=== PATIENT | male | born 1970 | race Caucasian/White ===

== ENCOUNTER 2017-02-28 10:04 | Emergency (ER) | payer SELFPAY ==
[~2017-02-28] VITALS: Ht 177.8 cm; Wt 107.0 kg
[2017-02-28 10:06] VITALS: BP 162/100; PULSE 59; O2SAT 95; Ht 177.8 cm; Wt 107.0 kg
[2017-02-28] MEDS ORDERED: ACET325T96 PO (10:20)
[2017-02-28] MEDS ORDERED: IBUP-1050 PO (10:20)
[2017-02-28] MEDS ORDERED: HYDROCODONE/ACETAMOPHEN 5/325MG TAB PO STA (10:22)
[2017-02-28] MEDS ORDERED: KETOROLAC TROMETHAMINE 60 MG/2 ML VIAL IM STA (10:28)
--- NOTE | 2017-02-28 10:31 | EMERGENCY ROOM VISIT NOTE ---
ED Visit Note First contact with patient: 10:11 CHIEF COMPLAINT: Toothache HISTORY OF PRESENT ILLNESS: This 46-year-old male presents the ER with chief complaint of increased right lower tooth pain. The patient has had pain in the right lower molar for over one year. He had chipped the tooth prior to the onset of the pain. The patient does not have insurance. The patient states over the last week he has increased pain in the right lower tooth. He denies any facial swelling. He has tried egty-jgr-yftlssc pain medications without any relief. He is also tried Orajel without any relief. REVIEW OF SYSTEMS: 6 system review was performed and was negative unless stated otherwise in history of present illness. PMH: The patient is healthy; there is no significant medical or surgical history. SOCIAL HISTORY: Patient lives with his . PHYSICAL EXAM: Vital Signs: Blood pressure 162/100, pulse 59, respirations 18 Reviewed Nurse's notes. GENERAL: 46-year-old white male appears uncomfortable secondary to tooth pain. MENTAL Status: Alert and oriented 3. Mouth: Right lower molar with diffuse decay and a portion of the tooth missing. Surrounding gingiva without erythema or edema noted. No palpable abscess noted. FACE: No erythema or edema noted. NECK: Supple, no lymphadenopathy noted. EMERGENCY COURSE: The patient was evaluated. The patient's EMR and medication list were reviewed. The patient is not on anything for hypertension. The patient's states that normally when he gets pain his blood pressure goes up. The patient was given [place] 5/325 mg 2 tablets by mouth for pain. He is also given Toradol 60 mg IM for pain. The patient was given dental wax. The patient was reevaluated was feeling better. The patient was discharged home in stable condition. DIAGNOSIS: Dentalgia Elevated blood pressure DISCHARGE INSTRUCTIONS & TREATMENT: Ibuprofen 600 mg every 6 hours with food for pain. Take [place] as needed for more severe pain. Do not drive while taking the [place]. Take amoxicillin as prescribed. Appointment with a dentist as soon as possible for definitive care. Follow-up with your family doctor for blood pressure check in one week. Current/Historical Medications Scheduled PRN Acetaminophen Tab (Tylenol), 650 MG PO Q6H PRN for Pain Ibuprofen (Advil), 200-600 MG PO Q4H PRN for Pain Allergies Coded Allergies: No Known Allergies (Unverified , 02/28/17) Vital Signs Date Time Temp Pulse Resp B/P Pulse Ox O2 Delivery O2 Flow Rate FiO2 02/28/17 10:06 59 18 162/100 95 Room Air Departure Information Referrals No Doctor, Assigned (PCP) Patient Instructions [facility]
[2017-02-28] MEDS ORDERED: HYDR-5688 PO (10:34)
[2017-02-28] MEDS ORDERED: AMOX500C3 PO (10:34)
[2017-07-03] MEDS ORDERED: MULT-506 PO (10:05)
[2017-07-19] MEDS ORDERED: HYDR-5688 PO (10:23)
== END 2017-02-28 10:40 | disposition home or self-care (01) ==
LOC: C.EDB 10:06 → C.EDA 10:40
DX: K08.89 Other specified disorders of teeth and supporting structures (principal); I10 Essential (primary) hypertension

== ENCOUNTER 2017-04-18 00:10 | Emergency (ER) | payer SELFPAY ==
[~2017-04-18] VITALS: Ht 177.8 cm; Wt 105.1 kg
[~2017-04-18 00:10] MED LIST: ACET325T96 PO; HYDR-5688 PO; IBUP-1050 PO
[2017-04-18 00:21] VITALS: TEMP 36.7; Ht 177.8 cm; Wt 105.1 kg
--- NOTE | 2017-04-18 00:36 | EMERGENCY ROOM VISIT NOTE ---
History Report prepared by Rita: Renetta Smith Under the Supervision of: Dr. Alvarez Ugarte M.D. First contact with patient: 00:23 Chief Complaint: ABDOMINAL PAIN Stated Complaint: SWELLING IN ABD AREA History of Present Illness The patient is a 46 year old male who presents to the Emergency Room with complaints of intermittent lower abdominal swelling that began 1.5 weeks ago. He currently rates his discomfort as a 3/10 in severity. The patient states that he has noticed intermittent swelling and soreness to his abdomen. He denies any history of hernias. The patient reports increased pain with coughing. He states that he has noticed some slight abdominal numbness. The patient denies any recent fall or trauma. He denies any fever, shortness of breath, chest pain, vomiting, urinary symptoms or change in bowel movements. The patient states that he takes Ibuprofen for his shoulder pain. He denies taking any other medications. Source of History: patient Onset: 1.5 weeks ago Position: abdomen Symptom Intensity: 3/10 Quality: other (swelling) Timing: intermittent Associated Symptoms: + numbness (abdomen), No fevers, No SOB, No nausea, No vomiting, No urinary symptoms Note: Associated Symptoms: soreness to his abdomen Review of Systems See HPI for pertinent positives & negatives. A total of 10 systems reviewed and were otherwise negative. Past Medical & Surgical Medical Problems: (1) No active medical problems Family History Diabetes mellitus FHx: heart disease Hypertension Social History Smoking Status: Never Smoker Smokeless Tobacco Use: No Alcohol Use: none Marital Status: Housing Status: lives with family Occupation Status: employed Current/Historical Medications Scheduled PRN Acetaminophen Tab (Tylenol), 650 MG PO Q6H PRN for Pain Hydrocodone/Acetaminophen 5MG/325MG ([place] 5MG/325MG), 1-2 TABLET PO Q6 PRN for Pain Ibuprofen (Advil), 200-600 MG PO Q4H PRN for Pain Allergies Coded Allergies: No Known Allergies (Unverified , 02/28/17) Physical Exam Vital Signs Date Time Temp Pulse Resp B/P (MAP) Pulse Ox O2 Delivery O2 Flow Rate FiO2 04/18/17 00:46 50 16 119/86 95 04/18/17 00:21 36.7 48 16 129/82 95 Room Air Physical Exam GENERAL: Patient is well appearing and in no acute distress. HEENT: No acute trauma, normocephalic atraumatic, mucous membranes moist, no nasal congestion, no scleral icterus. NECK: No stridor, no adenopathy, no meningismus, trachea is midline. LUNGS: No dyspnea. Clear to auscultation and equal bilaterally. No wheeze, no rhonchi. HEART: Regular rate and rhythm. No murmurs, rubs, gallops appreciated. ABDOMEN: Easily reducible right inguinal hernia. Returns with bearing down/ cough. Soft, nontender, bowel sounds positive, no peritonitis. BACK: No midline tenderness, no CVA tenderness EXTREMITIES: Normal motion all extremities, no cyanosis, no edema. NEUROLOGIC: Alert and oriented, no acute motor or sensory deficits, no focal weakness, cranial nerves grossly intact. SKIN: Large old scarring over right shoulder area. No rash, no jaundice, no diaphoresis. Medical Decision & Procedures ED Course 0026: The patient was evaluated in room A9B. A complete history and physical exam was performed. I discussed all the exam findings with him and I discussed the treatment plan. He verbalized complete understanding and agreement. He is ready to go home. 0036: I asked Case Management to speak to the patient about setting up with a primary care physician. Medical Decision Medication Reconciliation: I attest that I have personally reviewed the patient 's current medication list. Blood Pressure Screening: Patient was found to have a slightly elevated blood pressure likely due to circumstances. I do not believe that the patient requires urgent hypertension monitoring. 46 yr old male with easily reducible right inguinal hernia without TTP nor overlying erythema. No nausea, vomiting, blood in stool nor constipation. Discussed need to see surgeon. Discussed symptoms requiring RTED. Case management in to see patient. Impression Primary Impression: Right inguinal hernia Scribe Attestation The scribe's documentation has been prepared under my direction and personally reviewed by me in its entirety. I confirm that the note above accurately reflects all work, treatment, procedures, and medical decision making performed by me. Departure Information Dispostion Home / Self-Care Referrals Lee Pagan D.O. Forms Call Back Authorization, HOME CARE DOCUMENTATION FORM, IMPORTANT VISIT INFORMATION Patient Instructions ED Hernia Inguinal, [facility]
[2017-04-18 00:46] VITALS: BP 119/86; PULSE 50; O2SAT 95
[2017-07-03] MEDS ORDERED: MULT-506 PO (10:05)
[2017-07-19] MEDS ORDERED: HYDR-5688 PO (10:23)
== END 2017-04-18 00:47 | disposition home or self-care (01) ==
LOC: C.EDB 00:11 → C.EDA 00:47
DX: K40.90 Unilateral inguinal hernia, without obstruction or gangrene, not specified as recurrent (principal); Z83.3 Family history of diabetes mellitus; Z82.49 Family history of ischemic heart disease and other diseases of the circulatory system

== ENCOUNTER 2017-04-18 15:18 | Emergency (ER) | payer SELFPAY ==
[~2017-04-18] VITALS: Ht 177.8 cm; Wt 102.3 kg
[2017-04-18] MEDS ORDERED: SODIUM CHLORIDE 0.9% 1000ML 1,000 ML IV STA (15:39)
[2017-04-18 15:44] VITALS: TEMP 36.9
[2017-04-18 15:50] VITALS: O2SAT 94; Ht 177.8 cm; Wt 102.3 kg
--- NOTE | 2017-04-18 16:03 | DIAGNOSTIC IMAGING REPORT ---
CHEST ONE VIEW PORTABLE CLINICAL HISTORY: EVALUATE WEAKNESS mental status change COMPARISON STUDY: No previous studies for comparison. FINDINGS: The bones soft tissues and hemidiaphragms are normal. The cardiomediastinal silhouette is normal. The lungs are clear. The pulmonary vasculature is normal. IMPRESSION: Negative chest. Electronically signed by: Eugenio Diez M.D. 04/18/2017 4:01 PM Dictated Date/Time: 04/18/2017 4:01 PM
[2017-04-18 16:09] LABS: BASO % 0.2 %; BASO ABS # 0.01 K/uL (0-0.2); COMPLETE YES; EOS % 1.4 %; HEMATOCRIT 40.5 % (42-52); LYMPH % 25.9 %; LYMPH ABS # 1.28 K/uL (1.2-3.4); MEAN CELL VOLUME 81.2 fL (80-100); MEAN CORPUSCULAR HEMOGLOBIN 30.3 pg (25-34); MEAN CORPUSCULAR HGB CONC 37.3 g/dl (32-36); MEAN PLATELET VOLUME 9.3 fL (7.4-10.4); MONO % 6.1 %; NEUT % 66.4 %; PLATELET COUNT 160 K/uL (130-400); RED BLOOD COUNT 4.99 M/uL (4.7-6.1); WHITE BLOOD COUNT 4.94 K/uL (4.8-10.8)
--- NOTE | 2017-04-18 16:30 | DIAGNOSTIC IMAGING REPORT ---
CT OF THE HEAD WITHOUT CONTRAST CLINICAL HISTORY: Weakness. Lightheadedness. COMPARISON STUDY: No previous studies for comparison. CT DOSE: 788.63 mGycm TECHNIQUE: Helical axial images of the head were obtained without IV contrast. Automated exposure control was utilized for the study. FINDINGS: No acute intracranial hemorrhage, midline shift or mass effect is present. Ventricular system is normal. Basilar cisterns are patent. There are no extra-axial collections. Bird-white differentiation is maintained. There are no findings to suggest acute dural sinus thrombosis or acute territorial infarct. There are no calvarial abnormalities. Minimal mucosal thickening of the sinuses. Mastoid air cells are clear. IMPRESSION: No acute intracranial findings. Electronically signed by: Abraham Ramirez M.D. 04/18/2017 4:29 PM Dictated Date/Time: 04/18/2017 4:22 PM
[2017-04-18 17:22] LABS: BLOOD UREA NITROGEN 13 mg/dl (7-18); BUN/CREATININE RATIO 10.5 (10-20); CALCIUM 9.2 mg/dl (8.5-10.1); CARBON DIOXIDE 26 mmol/L (21-32); CHLORIDE 108 mmol/L (98-107); GLUCOSE 176 mg/dl (70-99); SODIUM 141 mmol/L (136-145)
[2017-04-18 17:27] LABS: ALKALINE PHOSPHATASE 79 U/L (45-117); ALT/SGPT 40 U/L (12-78); AST/SGOT 28 U/L (15-37)
[2017-04-18 18:13] LABS: URINE APPEARANCE CLEAR (CLEAR); URINE BILIRUBIN NEG (NEG); URINE COLOR YELLOW; URINE NITRITE NEG (NEG); URINE PH 7.5 (4.5-7.5); URINE SPECIFIC GRAVITY 1.015 (1.000-1.030); UROBILINOGEN NEG (NEG)
[2017-04-18 18:16] LABS: MANUAL MICROSCOPIC REQUIRED? NO; REVIEW REQ? NO
[2017-04-18 18:52] VITALS: BP 118/70; PULSE 52; O2SAT 96
--- NOTE | 2017-04-18 23:00 | EMERGENCY ROOM VISIT NOTE ---
History Report prepared by Rita: Eloise Moffett Under the Supervision of: Dr. Isaac Hilario D.O. First contact with patient: 15:25 Chief Complaint: DIZZY Stated Complaint: DIZZY, LIGHTHEADED, DIAPHORTIC History of Present Illness The patient is a 46 year old male who presents to the Emergency Room with complaints of an episode of lightheadedness beginning 1 hour ago. The patient states that he ate something before he left today and when he got in the car to go to work he began feeling lightheaded and like he was going to pass out. He reports that when he got to work he sat down and started to sweat suddenly and feel nauseous and tingly. The patient's BSG is 120 and he arrived here via ambulance. He denies any chest pain, shortness of breath, vomiting, changes in vision outside of being lightheaded, weakness, numbness. The patient states that he has been having shoulder pain over the last few weeks after sleeping wrong and he notes that his pain is better when it is in certain positions. He notes that he was seen here in the ED yesterday and was diagnosed with a hernia. Source of History: patient Onset: just CLIENT EXPERIENCE ADMINISTRATOR Position: other (global) Quality: other (lightheadedness) Timing: other (episode) Associated Symptoms: + diaphoresis, + nausea, No chest pain, No SOB, No vomiting, No weakness, No numbness Note: Patient complains of tingling. He denies any changes in vision. Review of Systems See HPI for pertinent positives & negatives. A total of 10 systems reviewed and were otherwise negative. Past Medical & Surgical Medical Problems: (1) No active medical problems Family History Diabetes mellitus FHx: heart disease Hypertension Social History Smoking Status: Never Smoker Alcohol Use: none Marital Status: Housing Status: lives with family Occupation Status: employed Current/Historical Medications Scheduled PRN Acetaminophen Tab (Tylenol), 650 MG PO Q6H PRN for Pain Hydrocodone/Acetaminophen 5MG/325MG ([place] 5MG/325MG), 1-2 TABLET PO Q6 PRN for Pain Ibuprofen (Advil), 200-600 MG PO Q4H PRN for Pain Allergies Coded Allergies: No Known Allergies (Unverified , 04/18/17) Physical Exam Vital Signs Date Time Temp Pulse Resp B/P (MAP) Pulse Ox O2 Delivery O2 Flow Rate FiO2 04/18/17 18:52 52 16 118/70 96 Room Air 04/18/17 16:55 55 16 128/70 97 Room Air 60 125/74 61 133/80 04/18/17 15:50 94 Room Air 04/18/17 15:44 36.9 49 16 121/69 93 Room Air 04/18/17 15:33 55 Physical Exam GENERAL: sitting up in bed, alert, well appearing, well nourished, no distress, non-toxic EYE EXAM: normal conjunctiva, PERRL and EOM's grossly intact OROPHARYNX: no exudate, no erythema, lips, buccal mucosa, and tongue normal and mucous membranes are moist NECK: supple, no nuchal rigidity, no adenopathy, non-tender LUNGS: Clear to auscultation. Normal chest wall mechanics HEART: no murmurs, S1 normal and S2 normal ABDOMEN: abdomen soft, non-tender, normo-active bowel sounds, no masses, no rebound or guarding. BACK: Back is symmetrical on inspection and there is no deformity, no midline tenderness, no CVA tenderness. SKIN: no rashes and no bruising UPPER EXTREMITIES: upper extremities are grossly normal. LOWER EXTREMITIES: No pitting edema. NEURO EXAM: Normal sensorium, cranial nerves II-XII intact, normal speech, no weakness of arms, no weakness of legs. No drift. Finger to nose intact. Gross sensation intact. Medical Decision & Procedures ER Provider Diagnostic Interpretation: Radiology results as stated below per my review and the radiologist's interpretation: CT OF THE HEAD WITHOUT CONTRAST FINDINGS: No acute intracranial hemorrhage, midline shift or mass effect is present. Ventricular system is normal. Basilar cisterns are patent. There are no extra-axial collections. Bird-white differentiation is maintained. There are no findings to suggest acute dural sinus thrombosis or acute territorial infarct. There are no calvarial abnormalities. Minimal mucosal thickening of the sinuses. Mastoid air cells are clear. IMPRESSION: No acute intracranial findings. Electronically signed by: Abraham Ramirez M.D. 04/18/2017 4:29 PM Dictated Date/Time: 04/18/2017 4:22 PM CHEST ONE VIEW PORTABLE FINDINGS: The bones soft tissues and hemidiaphragms are normal. The cardiomediastinal silhouette is normal. The lungs are clear. The pulmonary vasculature is normal. IMPRESSION: Negative chest. Electronically signed by: Eugenio Diez M.D. 04/18/2017 4:01 PM Dictated Date/Time: 04/18/2017 4:01 PM Laboratory Results 04/18/17 15:59 Red Blood Count 4.99, Mean Corpuscular Volume 81.2, Mean Corpuscular Hemoglobin 30.3, Mean Corpuscular Hemoglobin Concent 37.3, Mean Platelet Volume 9.3, Neutrophils (%) (Auto) 66.4, Lymphocytes (%) (Auto) 25.9, Monocytes (%) (Auto) 6.1, Eosinophils (%) (Auto) 1.4, Basophils (%) (Auto) 0.2, Neutrophils # (Auto) 3.28, Lymphocytes # (Auto) 1.28, Monocytes # (Auto) 0.30, Eosinophils # (Auto) 0.07, Basophils # (Auto) 0.01 04/18/17 15:59 Test 04/18/17 15:57 04/18/17 15:59 04/18/17 18:00 04/18/17 18:06 Bedside Glucose 183 mg/dl (70-99) White Blood Count 4.94 K/uL (4.8-10.8) Red Blood Count 4.99 M/uL (4.7-6.1) Hemoglobin 15.1 g/dL (14.0-18.0) Hematocrit 40.5 % (42-52) Mean Corpuscular Volume 81.2 fL (80-100) Mean Corpuscular Hemoglobin 30.3 pg (25-34) Mean Corpuscular Hemoglobin Concent 37.3 g/dl (32-36) Platelet Count 160 K/uL (130-400) Mean Platelet Volume 9.3 fL (7.4-10.4) Neutrophils (%) (Auto) 66.4 % Lymphocytes (%) (Auto) 25.9 % Monocytes (%) (Auto) 6.1 % Eosinophils (%) (Auto) 1.4 % Basophils (%) (Auto) 0.2 % Neutrophils # (Auto) 3.28 K/uL (1.4-6.5) Lymphocytes # (Auto) 1.28 K/uL (1.2-3.4) Monocytes # (Auto) 0.30 K/uL (0.11-0.59) Eosinophils # (Auto) 0.07 K/uL (0-0.5) Basophils # (Auto) 0.01 K/uL (0-0.2) RDW Standard Deviation 36.9 fL (36.4-46.3) RDW Coefficient of Variation 12.5 % (11.5-14.5) Immature Granulocyte % (Auto) 0.0 % Immature Granulocyte # (Auto) 0.00 K/uL (0.00-0.02) Anion Gap 7.0 mmol/L (3-11) Est Creatinine Clear Calc Drug Dose 93.2 ml/min Estimated GFR () 84.1 Estimated GFR (Non- 72.6 BUN/Creatinine Ratio 10.5 (10-20) Calcium Level 9.2 mg/dl (8.5-10.1) Total Bilirubin 0.6 mg/dl (0.2-1) Direct Bilirubin 0.2 mg/dl (0-0.2) Aspartate Amino Transf (AST/SGOT) 28 U/L (15-37) Alanine Aminotransferase (ALT/SGPT) 40 U/L (12-78) Alkaline Phosphatase 79 U/L (45-117) Total Protein 7.0 gm/dl (6.4-8.2) Albumin 3.9 gm/dl (3.4-5.0) Urine Color YELLOW Urine Appearance CLEAR (CLEAR) Urine pH 7.5 (4.5-7.5) Urine Specific [place] 1.015 (1.000-1.030) Urine Protein NEG (NEG) Urine Glucose (UA) NEG (NEG) Urine Ketones NEG (NEG) Urine Occult Blood NEG (NEG) Urine Nitrite NEG (NEG) Urine Bilirubin NEG (NEG) Urine Urobilinogen NEG (NEG) Urine Leukocyte Esterase NEG (NEG) Troponin I < 0.015 ng/ml (0-0.045) Laboratory results per my review. Medications Administered Medications (Trade) Dose Ordered Sig/Lorrie Route Start Time Stop Time Status Last Admin Dose Admin Sodium Chloride 1,000 ml @ 999 mls/hr Q1H1M STAT IV 04/18/17 15:39 04/18/17 16:39 DC 04/18/17 15:58 999 MLS/HR ECG Indication: other (lightheadedness) Rate (beats per minute): 47 Rhythm: sinus bradycardia Findings: other (normal axis, flipped T wave in Lead 3) Comparison ECG Date: no prior available ED Course ED COURSE: Vital signs were reviewed and showed bradycardia The patients medical record was reviewed The above diagnostic studies were performed and reviewed. ED treatments and interventions as stated above. 1527: The patient was evaluated in room C5. A complete history and physical examination was performed. 1539: Sodium Chloride 1000 ml @ 999 mls/hr IV. 1443: I reevaluated the patient and he sat up and felt lightheaded. I updated the patient. 1859: I reevaluated and updated the patient. 1905: Upon reevaluation, the patient is doing well.I discussed my findings with the patient and she understands and agrees with the treatment plan. Based on the patients age, coexisting illnesses, exam and lab findings the decision to treat as an outpatient was made. The patient remained stable while under my care. The patient appeared well at the time of discharge. Medical Decision Differential diagnosis includes etiologies such as benign positional vertigo, dehydration, hypovolemia, anemia, tumor, infection, hypoglycemia, electrolyte abnormalities, cardiac sources, intracerebral event, toxicologic, neurologic, as well as others were entertained. Blood pressure screening: Patient was found to have normal blood pressure on screening and does not require follow-up. Medication Reconciliation: I attest that I have personally reviewed the patient' s current medication list. Patient is a 46-year-old female that presents the ER for lightheadedness associated with sweating. Blood sugar per EMS was 150s. Patient is completely neurologically intact. CBC along BMP, LFTs, bilirubin and troponins were negative 2. UA was negative. EKG was nondiagnostic. Patient had absolutely no chest pain or shortness of breath. With his symptoms of feeling lightheaded , negative CT head and improvement with fluids I felt was reasonable to discharge him and have him follow with his PCP. There is no signs of cerebellar symptoms. Discussed with Pt concerning signs and symptoms to watch out for. Pt was instructed to follow up with their PCP and discussed with the patient their option to return to the ED at anytime for persistent or worsening symptoms. The appropriate anticipatory guidance and out-patient management, including indications for return to the emergency department, were explained at length to the patient and understood. Impression Primary Impression: Lightheaded Scribe Attestation The scribe's documentation has been prepared under my direction and personally reviewed by me in its entirety. I confirm that the note above accurately reflects all work, treatment, procedures, and medical decision making performed by me. Departure Information Dispostion Home / Self-Care Referrals No Doctor, Assigned (PCP) Forms HOME CARE DOCUMENTATION FORM, IMPORTANT VISIT INFORMATION Patient Instructions ED Dizziness FRITZ, Shelley [facility] Additional Instructions Please follow up with your primary care doctor with in the next 24 hours. Any worsening of your symptoms, please return to the ED immediately. This includes weakness or numbness in arms or legs, confusion, fevers greater than 100.4, chest pain, shortness breath, or any other concerning signs or symptoms from your stand point. Please take Motrin or Tylenol as needed for pain
[2017-07-03] MEDS ORDERED: MULT-506 PO (10:05)
[2017-07-19] MEDS ORDERED: HYDR-5688 PO (10:23)
== END 2017-04-18 19:11 | disposition home or self-care (01) ==
LOC: EDBD 15:18 → C.EDC 15:19
DX: R42 Dizziness and giddiness (principal); Z83.3 Family history of diabetes mellitus; Z82.49 Family history of ischemic heart disease and other diseases of the circulatory system

== ENCOUNTER → 2017-07-19 | Day surgery (SDC) | payer BC ==
[2017-07-03 10:06] VITALS: Ht 177.8 cm; Wt 90.5 kg
[~2017-07-19] VITALS: Ht 177.8 cm; Wt 90.5 kg
[~2017-07-19] MED LIST changes: +ATROPINE SULFATE 0.1 MG/ML 5ML SYR IV PRN; +BUPIVACAINE/EPINEPHRINE 0.5% MPF 1:200,000 30 ML VIAL ONE; +CEFAZOLIN 2000 MG/60 ML D5W IV SCH; +DEXAMETHASONE SOD INJ 4 MG/ML VIAL ONE; +EpHEDrine SULFATE INJ 50 MG/ML AMP IV PRN; +FENTANYL CITRATE INJ 50 MCG/1 ML 2 ML VIAL ONE; +HYDROCODONE/ACETAMOPHEN 5/325MG TAB PO PRN; +KETOROLAC TROMETHAMINE 30 MG/ML VIAL ONE; +LACTATED RINGER'S 1000ML 1,000 ML IV SCH; +LIDOCAINE HCL 2% 2 ML VIAL (20MG/ML) ONE; +MIDAZOLAM HCL 1 MG/ML 2ML VIAL ONE; +MULT-506 PO; +ONDANSETRON INJ 2 MG/ML 2 ML VIAL IV PRN; +ONDANSETRON INJ 2 MG/ML 2 ML VIAL ONE; +PROPOFOL IV EMULSION 10 MG/ML 20 ML VIAL IV ONE; +SODIUM CHLORIDE 0.9% 1000ML 1,000 ML IV SCH
--- NOTE | 2017-07-19 08:20 | History & Physical Bridge Note ---
H&P Re-Evaluation Bridge Note: I have examined the patient, reviewed the History & Physical and in the interval since the performance of the History & Physical I have noted the following changes of clinical significance: No changes noted
--- NOTE | 2017-07-19 10:25 | Discharge Instructions-SurgCtr ---
Discharge Instructions Date of Service Jul 19, 2017. Visit Reason for Visit: Right Inguinal Hernia Discharge Discharge Diagnosis / Problem: Right Inguinal Hernia Discharge Goals Goal(s): Decrease discomfort, Improve function Activity Recommendations Activity Limitations: as noted below Lifting Limitations: no more than 10 pounds Exercise/Sports Limitations: until after follow-up appointment May Resume Sexual Activity: after follow-up appointment Shower/Bathe: tomorrow Driving or Machine Use: resume 1 day after discharge Anesthesia . Post Anesthesia Instructions: If you have had General Anesthesia or IV Sedation: * Do not drive today. * Resume driving when surgeon permits. * Do not make important decisions or sign legal documents today. * Call surgeon for: 1. Temperature elevations greater than 101 degrees F. 2. Uncontrollable pain. 3. Excessive bleeding. 4. Persistent nausea and vomiting. 5. Medication intolerance (nausea, vomiting or rash). * For nausea and vomiting use only clear liquids such as: tea, soda, bouillon until nausea subsides, then gradually increase diet as tolerated. * If you have any concerns or questions, call your surgeon's office. If physician is unavailable and it is an emergency, call 911 or go to the nearest emergency room. . Instructions / Follow-Up Instructions / Follow-Up Please follow-up with Dr. Pagan in the office in 1-2 weeks. Please call the office to make a follow-up appointment if you do not have one already. Please call the office with any questions or concerns. Diet Recommendations Home Diet: no limitations, resume previous diet Procedures Procedures Performed: Right Inguinal Hernia Open Repair With Mesh Pending Studies Studies pending at discharge: no Medical Emergencies . Who to Call and When: Medical Emergencies: If at any time you feel your situation is an emergency, please call 911 immediately. . Non-Emergent Contact Non-Emergency issues call your: Primary Care Provider, Surgeon Call Non-Emergent contact if: temperature is above 101.5, your pain is not controlled, wound has increased drainage, wound has increased redness . . "Provider Documentation" section prepared by Steff Zurita. . [place] Drug Monitoring Program Search Results: patient reviewed within database, no issues identified
--- NOTE | 2017-07-19 10:33 | [facility] Operative Report ---
Operative Report Operative Date Jul 19, 2017. Pre-Operative Diagnosis Right Inguinal Hernia Post-Operative Diagnosis large/chronic indirect RIH. Procedure(s) Performed Right Inguinal Hernia Open Repair With Mesh;ilioinguinal neurolysis Surgeon Dr Pagan Se[employer] Surgeon(s) Charline Mariscal PA-C Estimated Blood Loss 5ML Findings large indirect RIH Specimens A: Right Inguinal Hernia Sac Anesthesia LMA Complication(s) None Disposition Recovery Room / PACU Description of Procedure After informed consent was obtained the patient was taken to the operating suite and placed in a supine position. After successful placement of a laryngeal mask airway the right groin was shaved and sterilely prepped and draped in usual fashion. I began by making an inguinal incision with a 10 blade scalpel and carried this down through the soft tissue using electrocautery. The external oblique aponeurosis was skeletonized and a new blade was made was used to make a small incision in it. Metzenbaum scissors were used to extend this through the external ring as well as for several centimeters proximally. Once in the inguinal canal we were able to bluntly tease the cord and cord structures off the pubic bone place a Brie around it. The anatomy was somewhat difficult because of the very large chronically thickened hernia sac. It took quite some time to dissect this free from the cord and cord structures. At one point we opened the sac to help delineate its borders. Once we did this we were then able to use blunt dissection as well as small amounts of cautery to dissect it back to its neck. I clamped off its neck and tied off using 3-0 Vicryl divided the distal part of the sac and sent to pathology. The neck of the sac easily reduced back into the abdominal cavity. There was no evidence of direct hernia. We then used a piece of polypropylene keyhole mesh as an onlay. It was secured distally to Elvin's ligament laterally along the shelving portion of Poupart ligament and medially along the midline musculature. The arms of the mesh were wrapped around behind the cord and cord structures. The mesh itself was secured using 0 Ethibond. The mesh laid tension free. There was adequate hemostasis. We thoroughly irrigated the wound. We used Marcaine to inject around the edges of the mesh for postoperative analgesia. We then closed the external oblique aponeurosis using 2-0 Vicryl in a running fashion. Soft tissue was irrigated and closed using 3-0 Vicryl and 4-0 Monocryl for the skin. Some additional Marcaine was injected around the skin incision for postoperative analgesia and skin glue used as a dressing. The patient was extubated and transferred recovery in stable condition I attest to the content of the Intraoperative Record and any orders documented therein. Any exceptions are noted below.
[2017-07-19] MEDS: FENTANYL CITRATE INJ 50 MCG/1 ML 2 ML VIAL IV PRN ×3 (10:36→10:53)
--- NOTE | 2017-07-19 11:12 | Anesthesia Progress Nt - [facility] ---
Anesthesia Post Op Note Date & Time Jul 19, 2017 at 11:12 Vital Signs Pain Intensity: 3 Vital Signs Past 12 Hours Date Time Temp Pulse Resp B/P (MAP) Pulse Ox O2 Delivery O2 Flow Rate FiO2 07/19/17 07:51 36.7 50 18 134/87 (103) 96 Room Air Notes Mental Status: alert / awake / arousable, participated in evaluation Pt Amnestic to Procedure: Yes Nausea / Vomiting: adequately controlled Pain: adequately controlled Airway Patency, RR, SpO2: stable & adequate BP & HR: stable & adequate Hydration State: stable & adequate Anesthetic Complications: no major complications apparent
[2017-07-19 12:40] VITALS: BP 134/82; PULSE 55; TEMP 36.5; O2SAT 99
== END | disposition home or self-care (01) ==
LOC: X.SURG 07:41
PROVIDERS: ATTEND Surgery
DX: K40.90 Unilateral inguinal hernia, without obstruction or gangrene, not specified as recurrent (principal)

== ENCOUNTER 2017-10-02 02:18 | Inpatient (IN) | payer BC ==
[~2017-10-02] VITALS: Ht 180.3 cm; Wt 93.8 kg
[~2017-10-02 02:18] MED LIST changes: -ATROPINE SULFATE 0.1 MG/ML 5ML SYR IV PRN; -BUPIVACAINE/EPINEPHRINE 0.5% MPF 1:200,000 30 ML VIAL ONE; -CEFAZOLIN 2000 MG/60 ML D5W IV SCH; -DEXAMETHASONE SOD INJ 4 MG/ML VIAL ONE; -EpHEDrine SULFATE INJ 50 MG/ML AMP IV PRN; -FENTANYL CITRATE INJ 50 MCG/1 ML 2 ML VIAL ONE; -HYDR-5688 PO; -HYDROCODONE/ACETAMOPHEN 5/325MG TAB PO PRN; -KETOROLAC TROMETHAMINE 30 MG/ML VIAL ONE; -LACTATED RINGER'S 1000ML 1,000 ML IV SCH; -LIDOCAINE HCL 2% 2 ML VIAL (20MG/ML) ONE; -MIDAZOLAM HCL 1 MG/ML 2ML VIAL ONE; -ONDANSETRON INJ 2 MG/ML 2 ML VIAL IV PRN; -ONDANSETRON INJ 2 MG/ML 2 ML VIAL ONE; -PROPOFOL IV EMULSION 10 MG/ML 20 ML VIAL IV ONE; -SODIUM CHLORIDE 0.9% 1000ML 1,000 ML IV SCH
[2017-10-02] MEDS ORDERED: AMPICILLIN/SULBACTAM SOD INJ 3,000 MG in SODIUM CHLORIDE 0.9% 100ML 100 ML IV STA (02:30)
[2017-10-02] MEDS ORDERED: KETOROLAC TROMETHAMINE 30 MG/ML VIAL IV STA (02:30)
[2017-10-02 02:52] LABS: BASO % 0.2 %; BASO ABS # 0.02 K/uL (0-0.2); COMPLETE YES; EOS % 1.4 %; HEMATOCRIT 39.6 % (42-52); IG% 0.1 %; LYMPH % 21.1 %; LYMPH ABS # 1.85 K/uL (1.2-3.4); MEAN CELL VOLUME 83.9 fL (80-100); MEAN CORPUSCULAR HEMOGLOBIN 29.4 pg (25-34); MEAN CORPUSCULAR HGB CONC 35.1 g/dl (32-36); MEAN PLATELET VOLUME 9.7 fL (7.4-10.4); MONO % 9.2 %; PLATELET COUNT 156 K/uL (130-400); RED BLOOD COUNT 4.72 M/uL (4.7-6.1); WHITE BLOOD COUNT 8.76 K/uL (4.8-10.8)
[2017-10-02 03:10] LABS: BUN/CREATININE RATIO 17.8 (10-20); C-REACTIVE PROTEIN 1.65 mg/dl (0-0.29); CALCIUM 8.7 mg/dl (8.5-10.1); CREATININE 0.88 mg/dl (0.60-1.40); POTASSIUM 3.8 mmol/L (3.5-5.1)
--- NOTE | 2017-10-02 03:27 | EMERGENCY ROOM VISIT NOTE ---
History First contact with patient: 02:23 Chief Complaint: INFECTION Stated Complaint: INFECTION AND PAIN IN HAND Nursing Triage Summary: Family dog bit left thumb. Left thumb red, swollen and painful. History of Present Illness The patient is a 47 year old male who presents to the Emergency Room left thumb infection. Patient was bitten by his own dog 3 days ago on left thumb. Since then with soreness though over last few hours increasing swelling, pain and redness. Now with drainage from thumb and severe pain on trying to move it. No history of issues with infections. No recent antibiotics. No trauma/ injuries otherwise. No nausea, vomiting, syncope, nor other symptoms. Last tetanus in last 5 yrs. Dog had rabies vaccinations. Review of Systems See HPI for pertinent positives & negatives. A total of 10 systems reviewed and were otherwise negative. Past Medical/Surgical History Medical Problems: (1) Cellulitis (2) No active medical problems Family History Diabetes mellitus FHx: heart disease Hypertension Social History Smoking Status: Never Smoker Alcohol Use: none Marital Status: Housing Status: lives with family Occupation Status: employed Current/Historical Medications No Active Prescriptions or Reported Meds Physical Exam Vital Signs Date Time Temp Pulse Resp B/P (MAP) Pulse Ox O2 Delivery O2 Flow Rate FiO2 10/02/17 04:09 61 18 130/82 98 10/02/17 02:19 36.7 54 16 145/89 99 Room Air Physical Exam GENERAL: Patient is uncomfortable appearing and in no acute distress. HEENT: No acute trauma, normocephalic atraumatic, mucous membranes moist, no nasal congestion, no scleral icterus. NECK: No stridor, no adenopathy, no meningismus, trachea is midline. LUNGS: No dyspnea. Clear to auscultation and equal bilaterally. No wheeze, no rhonchi. HEART: Regular rate and rhythm. No murmurs, rubs, gallops appreciated. EXTREMITIES: There is significant swelling and erythema of entire left thumb with draining wound over dorsal aspect of DIP. Significant pain with ROM this joint. Otherwise Normal motion all extremities, no cyanosis, no edema. NEUROLOGIC: Alert and oriented, no acute motor or sensory deficits, no focal weakness, cranial nerves grossly intact. SKIN: Cellulitis left thumb with streaking to wrist over dorsal and palmar aspects of hand. Otherwise no rash, no jaundice, no diaphoresis. Medical Decision & Procedures Laboratory Results 10/02/17 02:40 Red Blood Count 4.72, Mean Corpuscular Volume 83.9, Mean Corpuscular Hemoglobin 29.4, Mean Corpuscular Hemoglobin Concent 35.1, Mean Platelet Volume 9.7, Neutrophils (%) (Auto) 68.0, Lymphocytes (%) (Auto) 21.1, Monocytes (%) (Auto) 9.2, Eosinophils (%) (Auto) 1.4, Basophils (%) (Auto) 0.2, Neutrophils # (Auto) 5.95, Lymphocytes # (Auto) 1.85, Monocytes # (Auto) 0.81, Eosinophils # (Auto) 0.12, Basophils # (Auto) 0.02 10/02/17 02:40 Test 10/02/17 02:40 White Blood Count 8.76 K/uL (4.8-10.8) Red Blood Count 4.72 M/uL (4.7-6.1) Hemoglobin 13.9 g/dL (14.0-18.0) Hematocrit 39.6 % (42-52) Mean Corpuscular Volume 83.9 fL (80-100) Mean Corpuscular Hemoglobin 29.4 pg (25-34) Mean Corpuscular Hemoglobin Concent 35.1 g/dl (32-36) Platelet Count 156 K/uL (130-400) Mean Platelet Volume 9.7 fL (7.4-10.4) Neutrophils (%) (Auto) 68.0 % Lymphocytes (%) (Auto) 21.1 % Monocytes (%) (Auto) 9.2 % Eosinophils (%) (Auto) 1.4 % Basophils (%) (Auto) 0.2 % Neutrophils # (Auto) 5.95 K/uL (1.4-6.5) Lymphocytes # (Auto) 1.85 K/uL (1.2-3.4) Monocytes # (Auto) 0.81 K/uL (0.11-0.59) Eosinophils # (Auto) 0.12 K/uL (0-0.5) Basophils # (Auto) 0.02 K/uL (0-0.2) RDW Standard Deviation 38.1 fL (36.4-46.3) RDW Coefficient of Variation 12.5 % (11.5-14.5) Immature Granulocyte % (Auto) 0.1 % Immature Granulocyte # (Auto) 0.01 K/uL (0.00-0.02) Anion Gap 3.0 mmol/L (3-11) Est Creatinine Clear Calc Drug Dose 122.7 ml/min Estimated GFR () 119.4 Estimated GFR (Non- 103.0 BUN/Creatinine Ratio 17.8 (10-20) Calcium Level 8.7 mg/dl (8.5-10.1) Total Bilirubin 0.7 mg/dl (0.2-1) Direct Bilirubin 0.2 mg/dl (0-0.2) Aspartate Amino Transf (AST/SGOT) 23 U/L (15-37) Alanine Aminotransferase (ALT/SGPT) 31 U/L (12-78) Alkaline Phosphatase 90 U/L (45-117) C-Reactive Protein 1.65 mg/dl (0-0.29) Total Protein 7.4 gm/dl (6.4-8.2) Albumin 3.9 gm/dl (3.4-5.0) Medications Administered Medications (Trade) Dose Ordered Sig/Lorrie Route Start Time Stop Time Status Last Admin Dose Admin Ketorolac Tromethamine (Toradol Inj) 30 mg NOW STAT IV 10/02/17 02:30 10/02/17 02:32 DC 10/02/17 02:52 30 MG Ampicillin Sodium/ Sulbactam Sodium 3000 mg/Sodium Chloride 108 ml @ 200 mls/hr NOW STAT IV 10/02/17 02:30 10/02/17 03:02 DC 10/02/17 02:52 200 MLS/HR Medical Decision Pleasant 47 yr old male arrives for evaluation of dog bite left thumb. It is swollen/sausage like, cant bend it and now with streaking to wrist as well as TTP over much of thumb. Distal sensation intact. There is drainage from wound over top of DIP, there is questionable fb in this area on xray. Labs OK and he is not septic. Given IV unasyn. Reviewed with ortho who request MRI thumb and admission to hospitalist service. Patient agreeable to this plan. Impression Primary Impression: Dog bite of left thumb with infection Departure Information Prescriptions No Active Prescriptions or Reported Meds Referrals No Doctor, Assigned (PCP) Patient Instructions My [facility] Problem Qualifiers Primary Impression: Dog bite of left thumb with infection Encounter type: initial encounter Qualified Codes: S61.052A - Open bite of left thumb without damage to nail, initial encounter; L08.9 - Local infection of the skin and subcutaneous tissue, unspecified; W54.0XXA - Bitten by dog, initial encounter
[2017-10-02] MEDS ORDERED: LORAZEPAM 2 MG/ML 1 ML VIAL IV PRN (04:15)
[2017-10-02] MEDS ORDERED: ONDANSETRON INJ 2 MG/ML 2 ML VIAL IV PRN (04:15)
[2017-10-02] MEDS ORDERED: ACETAMINOPHEN 325 MG TAB PO PRN (04:15)
--- NOTE | 2017-10-02 04:56 | HISTORY & PHYSICAL EXAMINATION ---
DATE OF ADMISSION: 10/02/2017 PRIMARY CARE DOCTOR: None. ROOFER APPRENTICE COMPLAINT: Hand swelling. HISTORY OF PRESENT ILLNESS: History obtained from patient and records. No significant medical history. Few days ago the patient presented with left thumb swelling after being bitten by his dog, progressive achy swelling, clear yellow drainage. No fever, no chills. Intermittent bleeding noted from the wound. Tetanus immunizations, dog's rabies vaccines up-to-date as per patient. Patient consulted ER. Given Unasyn for left hand cellulitis, infected wound. MEDICAL HISTORY: As above. SURGICAL HISTORY: Hernia surgery. HOME MEDICATIONS: None. ALLERGIES: No known drug allergies. FAMILY HISTORY: Diabetes. PERSONAL AND SOCIAL HISTORY: Nonsmoker, no chronic intake of alcoholic beverages. warehouse employee. REVIEW OF SYSTEMS: As per HPI, all 10 systems reviewed. All other ROS negative. PHYSICAL EXAMINATION: VITAL SIGNS: Blood pressure noted to be 130/82, pulse 61, RR 18, temperature 36.7, sats 98 on room air. GENERAL: Slightly anxious, no respiratory distress. SKIN: Normal color. Warm HEENT: Partial alopecia. no ptosis. Dry buccal mucosa. NECK: Supple. No tenderness. CHEST: Clear to auscultation. No tenderness. HEART: Regular rate and rhythm. No murmur. ABDOMEN: Soft, nontender. EXTREMITIES: There is note of crusty wound on the dorsum of the left thumb with swelling extending to the left wrist, tender. NEUROLOGIC: Coherent. No gross focality. LABORATORY DATA: Hemoglobin 13.9, hematocrit 39.6, white cell count 8.76, platelets 156. Sodium 136, potassium 3.8, chloride 105, CO2 28, BUN 16, creatinine 0.88, glucose 95. CRP was 1.65. Plain x-ray of the left hand as per my interpretation soft tissue swelling on the left medial aspect of the hand. ASSESSMENT: 1. Left hand cellulitis secondary to infected dog bite wound. no sepsis 2. Anemia, possibly from intermittent bleeding from wound. PLAN: GMF Unasyn. Orthopedics consult, left hand swelling/infected wound (ER provider already in touch with Dr. Roman who recommends an MRI of the left hand.) Anemia workup. DVT prophylaxis, SCDs RE intermittent bleeding wound Full code. MTDD
[2017-10-02] MEDS ORDERED: GADAVIST IV PRN (05:10)
[2017-10-02 05:35] VITALS: BP 149/90; PULSE 55; TEMP 36.7; O2SAT 95; Ht 180.3 cm; Wt 93.8 kg
[2017-10-02] MEDS ORDERED: NSS + 20MEQ KCL 1000ML 1,000 ML IV SCH (06:00)
[2017-10-02] MEDS: TRAMADOL HCL 50 MG TAB PO PRN ×2 (06:08→13:22)
--- NOTE | 2017-10-02 07:35 | DIAGNOSTIC IMAGING REPORT ---
LEFT THUMB 3 VIEWS HISTORY: left thumb DIP dog bite COMPARISON: None. FINDINGS: There is no fracture or dislocation. Soft tissue swelling at the interphalangeal joint. Mild osteoarthritis of the interphalangeal joint with marginal osteophytes. No radiopaque foreign bodies. IMPRESSION: No fractures. Soft tissue swelling within the left thumb. Electronically signed by: Edu Mora M.D. 10/02/2017 7:34 AM Dictated Date/Time: 10/02/2017 7:33 AM
[2017-10-02 07:54] VITALS: BP 130/82; PULSE 55; TEMP 36.6; O2SAT 97
--- NOTE | 2017-10-02 07:57 | DIAGNOSTIC IMAGING REPORT ---
MRI OF THE LEFT THUMB COMBO CLINICAL HISTORY: Dog bite injury. Infection. COMPARISON STUDY: Left thumb radiographs dated 10/02/2017. TECHNIQUE: MRI of the left thumb was performed utilizing various T1 and T2-weighted sequences in the axial, sagittal, and coronal planes. Contrast-enhanced sequences are obtained following the IV administration of 9 cc of Gadavist. The examination is significantly compromised by motion artifact. There is no marrow edema identified to suggest fracture. Subcutaneous soft tissue edema is present in the thumb and likely represents cellulitis. No organized or peripherally enhancing fluid collection is seen to suggest abscess. The visualized flexor and extensor tendons appear intact. There is fluid along the extensor tendon sheath. IMPRESSION: 1. Significantly motion compromised examination. 2. There is no MRI evidence of fracture or acute osseous abnormality. 3. Subcutaneous soft tissue edema suggests cellulitis. No organized/peripherally enhancing fluid collection is seen to suggest abscess. 4. The flexor and extensor tendons are grossly intact as visualized. Fluid is seen along the extensor tendon sheath and is indeterminant. This could be seen in the setting of tenosynovitis. Infection is not excluded. Clinical correlation will be essential. Dictated: 10/02/2017 7:38 AM Transcribed: 10/02/2017 7:57 AM Dori Electronically signed by: Ted Kan M.D. 10/02/2017 8:33 AM Dictated Date/Time: 10/02/2017 7:38 AM
--- NOTE | 2017-10-02 08:17 | Orthopedic Progress Note ---
Orthopedic Progress Note Date of Service Oct 02, 2017. Subjective Additional Notes: 47yo wm with h/o dog bite to the left thumb that occurred on Saturday. Pt states he continued to clean the bite wound over the last several days. It continued to drain. Erythema and pain continued to worsen causing him to lose sleep over the last night. He decided to come to the ER early this AM. Pt seen by staff and it was felt he should be admitted for IV antibx. Xrays and MRI performed. MRI pending. No fx's seen on xray with tissue swelling noted. PMH essentially benign PSH - herniorrhaphy Meds - none AL - NKDA Objective Left thumb with swelling over the distal joint. Small wound in the dorsum of the thumb with no overt drainage noted. Crusting noted at the wound. Erythema noted over the joint. Minimal erythema to the MCP joint or higher. Tenderness on palpation at the distal joint to about half way to MCP joint. Swelling noted going up the thumb. No pain at the MCP joint. No pain at the CMC joint. No erythema up the left forearm. Able to move the thumb currently without a lot of pain. Able to move distal thumb slightly but ROM decreased due to swelling and some pain. No increased pain with passive extension. Wrist NT with good ROM. Cap refill less than 2 seconds. Sensation intact. Date Time Temp Pulse Resp B/P (MAP) Pulse Ox O2 Delivery O2 Flow Rate FiO2 10/02/17 05:35 36.7 55 18 149/90 95 Room Air 10/02/17 04:09 61 18 130/82 98 10/02/17 02:19 36.7 54 16 145/89 99 Room Air Laboratory Results 24 Hours: Test 10/02/17 02:40 White Blood Count 8.76 K/uL Red Blood Count 4.72 M/uL Hemoglobin 13.9 g/dL Hematocrit 39.6 % Mean Corpuscular Volume 83.9 fL Mean Corpuscular Hemoglobin 29.4 pg Mean Corpuscular Hemoglobin Concent 35.1 g/dl Platelet Count 156 K/uL Mean Platelet Volume 9.7 fL Neutrophils (%) (Auto) 68.0 % Lymphocytes (%) (Auto) 21.1 % Monocytes (%) (Auto) 9.2 % Eosinophils (%) (Auto) 1.4 % Basophils (%) (Auto) 0.2 % Neutrophils # (Auto) 5.95 K/uL Lymphocytes # (Auto) 1.85 K/uL Monocytes # (Auto) 0.81 K/uL Eosinophils # (Auto) 0.12 K/uL Basophils # (Auto) 0.02 K/uL Assessment & Plan Assessment: Infected Dog Bite Left Thumb Plan: Continue IV antibx. Pt seems to have already responded to initial antibx. MRI pending Discussed with patient that if abscess noted on MRI, he will need I&D.
[2017-10-02] MEDS: AMPICILLIN/SULBACTAM SOD INJ 3,000 MG in SODIUM CHLORIDE 0.9% 100ML 100 ML IV SCH ×3 (08:46→20:28)
[2017-10-02] MEDS ORDERED: AMPICILLIN/SULBACTAM CONSULT ACTIVE PRN ×2 (09:00)
[2017-10-02 09:52] VITALS: O2SAT 97
[2017-10-02] MEDS: IBUPROFEN 200 MG TAB PO PRN ×2 (10:48→22:38)
[2017-10-02 11:10] LABS: MANUAL MICROSCOPIC REQUIRED? NO; REVIEW REQ? NO; URINE APPEARANCE CLEAR (CLEAR); URINE BILIRUBIN NEG (NEG); URINE COLOR YELLOW; URINE NITRITE NEG (NEG); URINE PH 6.5 (4.5-7.5); URINE SPECIFIC GRAVITY 1.019 (1.000-1.030); UROBILINOGEN NEG (NEG); ZZUR CULT IF INDIC CLEAN CATCH NO
[2017-10-02 12:53] LABS: HEMATOCRIT 38.3 % (42-52)
[2017-10-02 12:57] VITALS: BP 142/80; PULSE 60; TEMP 37.1; O2SAT 95
[2017-10-02 13:17] LABS: FERRITIN 79.2 ng/ml (8.0-388.0)
[2017-10-02] MEDS ORDERED: ACETAMINOPHEN/CODEINE 300/30MG TAB PO ONE (13:29)
--- NOTE | 2017-10-02 13:29 | Progress Note ---
Medicine Progress Note Date & Time of Visit: Oct 02, 2017 at 11:08. Subjective 47 yo M with recent dog bite to his hand. The dog was his own and reports shots were UTD. Pt denies chest pain, fevers, chills, SOB. Still has some pain in the finger despite Ibuprofen use. Tolerating PO. Not clinically ill-appearing. Ambulatory. Objective Last 8 Hrs Date Time Temp Pulse Resp B/P (MAP) Pulse Ox O2 Delivery O2 Flow Rate FiO2 10/02/17 09:52 97 Room Air 10/02/17 07:54 36.6 55 22 130/82 (98) 97 Room Air 10/02/17 07:40 Room Air 10/02/17 05:35 36.7 55 18 149/90 95 Room Air 10/02/17 04:09 61 18 130/82 98 Physical Exam: GEN: WNWD, in no acute distress, alert and appropriate HEENT: NC/AT, normal sclerae, MMM CARDIO: reg rate, S1/2 heard without m/g/r LUNGS: CTA bilaterally, no crackles, rales or wheezes, good diaphragmatic excursion ABD: soft, non-tender, non-distended, no rebound or guarding EXTREMITY: RP and DP palpable 2+ bilat, no LE swelling or edema, extremities are warm and well-perfused. L thumb is erythematous with decreased flexion at the interphalangeal joint and some decreased ROM at the CMC joint. No erythema extends onto the hand, only slight redness to the thenar eminence. Wound is closed by secondary intention and is not currently draining. NEURO: CN 2-12 grossly intact, sensation intact throughout MUSC: 5/5 strength throughout, no focal deficits except as above. SKIN: warm and dry and wound as above. Laboratory Results: 10/02/17 02:40 Red Blood Count 4.72, Mean Corpuscular Volume 83.9, Mean Corpuscular Hemoglobin 29.4, Mean Corpuscular Hemoglobin Concent 35.1, Mean Platelet Volume 9.7, Neutrophils (%) (Auto) 68.0, Lymphocytes (%) (Auto) 21.1, Monocytes (%) (Auto) 9.2, Eosinophils (%) (Auto) 1.4, Basophils (%) (Auto) 0.2, Neutrophils # (Auto) 5.95, Lymphocytes # (Auto) 1.85, Monocytes # (Auto) 0.81, Eosinophils # (Auto) 0.12, Basophils # (Auto) 0.02 10/02/17 12:27 10/02/17 02:40 Test 10/02/17 02:40 10/02/17 10:50 10/02/17 12:27 White Blood Count 8.76 K/uL (4.8-10.8) Red Blood Count 4.72 M/uL (4.7-6.1) Hemoglobin 13.9 g/dL (14.0-18.0) Hematocrit 39.6 % (42-52) Mean Corpuscular Volume 83.9 fL (80-100) Mean Corpuscular Hemoglobin 29.4 pg (25-34) Mean Corpuscular Hemoglobin Concent 35.1 g/dl (32-36) Platelet Count 156 K/uL (130-400) Mean Platelet Volume 9.7 fL (7.4-10.4) Neutrophils (%) (Auto) 68.0 % Lymphocytes (%) (Auto) 21.1 % Monocytes (%) (Auto) 9.2 % Eosinophils (%) (Auto) 1.4 % Basophils (%) (Auto) 0.2 % Neutrophils # (Auto) 5.95 K/uL (1.4-6.5) Lymphocytes # (Auto) 1.85 K/uL (1.2-3.4) Monocytes # (Auto) 0.81 K/uL (0.11-0.59) Eosinophils # (Auto) 0.12 K/uL (0-0.5) Basophils # (Auto) 0.02 K/uL (0-0.2) RDW Standard Deviation 38.1 fL (36.4-46.3) RDW Coefficient of Variation 12.5 % (11.5-14.5) Immature Granulocyte % (Auto) 0.1 % Immature Granulocyte # (Auto) 0.01 K/uL (0.00-0.02) Anion Gap 3.0 mmol/L (3-11) Est Creatinine Clear Calc Drug Dose 122.7 ml/min Estimated GFR () 119.4 Estimated GFR (Non- 103.0 BUN/Creatinine Ratio 17.8 (10-20) Calcium Level 8.7 mg/dl (8.5-10.1) Total Bilirubin 0.7 mg/dl (0.2-1) Direct Bilirubin 0.2 mg/dl (0-0.2) Aspartate Amino Transf (AST/SGOT) 23 U/L (15-37) Alanine Aminotransferase (ALT/SGPT) 31 U/L (12-78) Alkaline Phosphatase 90 U/L (45-117) C-Reactive Protein 1.65 mg/dl (0-0.29) Total Protein 7.4 gm/dl (6.4-8.2) Albumin 3.9 gm/dl (3.4-5.0) Urine Color YELLOW Urine Appearance CLEAR (CLEAR) Urine pH 6.5 (4.5-7.5) Urine Specific [place] 1.019 (1.000-1.030) Urine Protein NEG (NEG) Urine Glucose (UA) NEG (NEG) Urine Ketones NEG (NEG) Urine Occult Blood NEG (NEG) Urine Nitrite NEG (NEG) Urine Bilirubin NEG (NEG) Urine Urobilinogen NEG (NEG) Urine Leukocyte Esterase NEG (NEG) Absolute Reticulocyte Count 0.05 10^6/uL (0.02-0.10) Percent Reticulocyte Count 1.1 % (0.5-2.0) Iron Level 35 mcg/dl (35-175) Total Iron Binding Capacity 323 mcg/dl (250-450) Transferrin 246 mg/dl (200-360) Transferrin % Saturation 10 % (20-50) Ferritin 79.2 ng/ml (8.0-388.0) Total Creatine Kinase 207 U/L (39-308) Last 24 Hours Test 10/02/17 02:40 10/02/17 10:50 White Blood Count 8.76 K/uL Red Blood Count 4.72 M/uL Hemoglobin 13.9 g/dL Hematocrit 39.6 % Mean Corpuscular Volume 83.9 fL Mean Corpuscular Hemoglobin 29.4 pg Mean Corpuscular Hemoglobin Concent 35.1 g/dl Platelet Count 156 K/uL Mean Platelet Volume 9.7 fL Neutrophils (%) (Auto) 68.0 % Lymphocytes (%) (Auto) 21.1 % Monocytes (%) (Auto) 9.2 % Eosinophils (%) (Auto) 1.4 % Basophils (%) (Auto) 0.2 % Neutrophils # (Auto) 5.95 K/uL Lymphocytes # (Auto) 1.85 K/uL Monocytes # (Auto) 0.81 K/uL Eosinophils # (Auto) 0.12 K/uL Basophils # (Auto) 0.02 K/uL RDW Standard Deviation 38.1 fL RDW Coefficient of Variation 12.5 % Immature Granulocyte % (Auto) 0.1 % Immature Granulocyte # (Auto) 0.01 K/uL Sodium Level 136 mmol/L Potassium Level 3.8 mmol/L Chloride Level 105 mmol/L Carbon Dioxide Level 28 mmol/L Anion Gap 3.0 mmol/L Blood Urea Nitrogen 16 mg/dl Creatinine 0.88 mg/dl Est Creatinine Clear Calc Drug Dose 122.7 ml/min Estimated GFR () 119.4 Estimated GFR (Non- 103.0 BUN/Creatinine Ratio 17.8 Random Glucose 95 mg/dl Calcium Level 8.7 mg/dl Total Bilirubin 0.7 mg/dl Direct Bilirubin 0.2 mg/dl Aspartate Amino Transf (AST/SGOT) 23 U/L Alanine Aminotransferase (ALT/SGPT) 31 U/L Alkaline Phosphatase 90 U/L Total Creatine Kinase 345 U/L C-Reactive Protein 1.65 mg/dl Total Protein 7.4 gm/dl Albumin 3.9 gm/dl Assessment & Plan 47 yo M with recent dog bite to his hand. The dog was his own and reports shots were UTD. Left hand cellulitis 2/2 dog bite-no sepsis. Wound is closed and not draining. Appears improved after IV abx overnight. Of note, patient reported having tetanus shot in the last 5 years, so tetanus vaccine was not administered. Decreased ROM of thumb. MRI did not show a fluid collection. Ortho holding on any washout at this time. Will cont to follow response to IV abx. DVT proph-SCDs Full Code Dispo-to home in 1-2 days on PO abx. Eden Gould DO [facility] Hospitalist Consultants: Ortho Current Inpatient Medications: Current Inpatient Medications Medications (Trade) Dose Ordered Sig/Lorrie Route Start Time Stop Time Status Last Admin Dose Admin Acetaminophen (Tylenol Tab) 650 mg Q4H PRN PO 10/02/17 04:15 11/01/17 04:14 Tramadol HCl (Ultram Tab) not relieved by tylenol @ Q6H PRN PO 10/02/17 04:15 11/01/17 04:14 10/02/17 06:08 50 MG Morphine Sulfate (MoRPHine SULFATE INJ) 4 mg Q3H PRN IV 10/02/17 04:15 10/16/17 04:14 Ibuprofen (Advil Tab) 400 mg Q6H PRN PO 10/02/17 04:15 11/01/17 04:14 10/02/17 10:48 400 MG Potassium Chloride/Sodium Chloride 1,000 ml @ 100 mls/hr Q10H IV 10/02/17 06:00 11/01/17 05:59 10/02/17 05:50 100 MLS/HR Ondansetron HCl (Zofran Inj) 4 mg Q6H PRN IV 10/02/17 04:15 11/01/17 04:14 Lorazepam (Ativan Inj) 0.5 mg Q4H PRN IV 10/02/17 04:15 11/01/17 04:14 Ampicillin Sodium/ Sulbactam Sodium (Consult) 1 ea DAILY PRN N/A 10/02/17 09:00 11/01/17 08:59 Ampicillin Sodium/ Sulbactam Sodium 3000 mg/Sodium Chloride 108 ml @ 216 mls/hr Q6H IV 10/02/17 08:30 10/12/17 08:29 10/02/17 08:46 216 MLS/HR Gadobutrol (Gadavist) 9 mmol UD PRN IV 10/02/17 05:10 10/06/17 05:09
[2017-10-02 15:04] VITALS: BP 134/80; PULSE 52; TEMP 37; O2SAT 94
[2017-10-02] MEDS: ACETAMINOPHEN/CODEINE 300/30MG TAB PO PRN ×2 (15:39→20:00)
--- NOTE | 2017-10-02 21:10 | ORTHOPEDIC CONSULTATION ---
DATE OF CONSULTATION: 10/02/2017 REASON FOR CONSULTATION: Special attention to left thumb infection. HISTORY OF PRESENT ILLNESS: This is a 47-year-old gentleman who sustained a dog bite, his own dog, a few days ago and he has progressive pain and swelling of the thumb at the IP joint of the thumb. He was admitted to the hospitalist service and has been placed on Unasyn for cellulitis. He is uncertain as to whether or not the thumb feels any better with interval antibiotic treatment. PHYSICAL EXAMINATION: Left thumb exam shows negative Kanavel's signs. He has a wound over the dorsal aspect of the IP joint of the thumb. There was slight amount of serous drainage. He has localized tenderness and swelling in the area. He has pain with range of motion of the IP joint of the thumb. No pain with range of motion of the MP joint of the thumb. He has no evidence of streaking erythema. Review of MRI shows no evidence of abscess and MRI does suggest a cellulitis. It does not show significant joint effusion but MRI is limited secondary to motion artifact. ASSESSMENT: Left thumb infection, possible early septic interphalangeal joint of the thumb versus cellulitis. PLAN: I discussed treatment options with him. I have a concern he may be developing a septic joint. Notes as per the hospitalist does state that he is improved with antibiotics. My recommendation is for close followup. If he does not show significant interval improvement by the morning, my recommendation would be irrigation and debridement of the interphalangeal joint of the left thumb. We will recheck him in the morning.
[2017-10-02 23:42] VITALS: BP 113/68; PULSE 55; TEMP 37.5; O2SAT 96
[2017-10-03] VITALS (8 sets, daily range): BP systolic 116–136; BP diastolic 70–83; PULSE 54–88; TEMP 36.7–38.5; O2SAT 93–96
[2017-10-03] MEDS: AMPICILLIN/SULBACTAM SOD INJ 3,000 MG in SODIUM CHLORIDE 0.9% 100ML 100 ML IV SCH ×4 (02:22→20:24)
[2017-10-03 06:57] LABS: BASO % 0.3 %; BASO ABS # 0.02 K/uL (0-0.2); COMPLETE YES; EOS % 2.6 %; IG% 0.2 %; LYMPH % 21.1 %; LYMPH ABS # 1.39 K/uL (1.2-3.4); MEAN CELL VOLUME 84.2 fL (80-100); MEAN CORPUSCULAR HEMOGLOBIN 30.3 pg (25-34); MEAN PLATELET VOLUME 9.8 fL (7.4-10.4); MONO % 8.2 %; NEUT % 67.6 %; PLATELET COUNT 152 K/uL (130-400); RED BLOOD COUNT 4.75 M/uL (4.7-6.1); WHITE BLOOD COUNT 6.59 K/uL (4.8-10.8)
[2017-10-03] MEDS: ACETAMINOPHEN/CODEINE 300/30MG TAB PO PRN (07:39)
--- NOTE | 2017-10-03 09:21 | PROGRESS NOTE ---
DATE: 10/03/2017 SUBJECTIVE: Medhat is seen at the bedside today. He has had no significant interval change. He denies any other complaints. OBJECTIVE: Left thumb exam does show tenderness and swelling in the joint. He has pain with range of motion of the IP joint of the thumb both actively and passively. He has negative Kanavel sign. He has small amount of drainage from a dorsal puncture wound. ASSESSMENT: Left thumb septic interphalangeal joint. PLAN: At this point, we will take him to the operating room for irrigation and debridement, plan for local MAC anesthesia. I do feel he is developing a septic joint. The risks and benefits have been discussed including, but not limited to, risk of infection, nerve injury, stiffness, loss of motion, failure to improve, etc. Reasonable outcomes and options of treatment were discussed. An explanation of appropriate alternatives to the procedure that may be advantageous were discussed and their risks and benefits, as well as the risks and benefits of not proceeding with treatment. I offered to answer any additional inquiries concerning the treatment involved. All the patient's questions were answered. The patient is agreeable, understanding of the treatment plan and alternatives, and wishes to proceed with the treatment plan. Plan for surgical intervention shortly.
[2017-10-03] MEDS: OXYCODONE/ACETAMINOPHEN 7.5-325 TAB PO PRN ×2 (15:27→20:19)
[2017-10-03] MEDS ORDERED: FENTANYL CITRATE INJ 50 MCG/1 ML 2 ML VIAL IV PRN (18:15)
[2017-10-03] MEDS ORDERED: MEPERIDINE HCL 25 MG/ML CARP IV PRN (18:15)
[2017-10-03] MEDS ORDERED: ATROPINE SULFATE 0.1 MG/ML 5ML SYR IV PRN (18:15)
[2017-10-03] MEDS ORDERED: FLUMAZENIL 0.1 MG/1 ML 10 ML VIAL IV PRN (18:15)
[2017-10-03] MEDS ORDERED: EpHEDrine SULFATE INJ 50 MG/ML AMP IV PRN (18:15)
[2017-10-03] MEDS ORDERED: NALOXONE HCL 0.4 MG/1 ML VIAL/CARP IV PRN (18:15)
[2017-10-03] MEDS ORDERED: PHENYLEPHRINE 100MCG/ML 5ML SYR IV PRN (18:15)
[2017-10-03] MEDS ORDERED: LABETALOL HCL IV 5 MG/ML 20ML IV PRN (18:15)
[2017-10-03] MEDS ORDERED: ONDANSETRON INJ 2 MG/ML 2 ML VIAL IV PRN (18:15)
[2017-10-03] MEDS ORDERED: HYDROmorphone INJ 2 MG/ML SYR/VIAL IV PRN (18:15)
[2017-10-03] MEDS ORDERED: PROPOFOL IV EMULSION 10 MG/ML 20 ML VIAL IV ONE (18:48)
[2017-10-03] MEDS ORDERED: LIDOCAINE HCL 2% LOCAL 50ML VIAL ONE (18:48)
[2017-10-03] MEDS ORDERED: FENTANYL CITRATE INJ 50 MCG/1 ML 2 ML VIAL ONE (18:48)
[2017-10-03] MEDS ORDERED: MIDAZOLAM HCL 1 MG/ML 2ML VIAL ONE (18:49)
--- NOTE | 2017-10-03 19:34 | [facility] Post Operative Brief Note ---
Immediate Operative Summary Operative Date Oct 03, 2017. Pre-Operative Diagnosis Left thumb septic interphalangeal joint of the thumb Post-Operative Diagnosis septic interphalangeal joint of the thumb Procedure(s) Performed Left Thumb Arthrotomy and Drainage Surgeon Dr. Elliott [place] Operator Surgeon(s) no Estimated Blood Loss 0cc Findings gross pus in IP joint Specimens Culture 1. Left thumb infection - routine - aerobic, anaerobic, gram stain, C+S Anesthesia local mac Complication(s) None Disposition Recovery Room / PACU
--- NOTE | 2017-10-03 19:40 | Anesthesiology Progress Note ---
Anesthesia Post Op Note Date & Time Oct 03, 2017 at 19:40 Vital Signs Pain Intensity: 1 Vital Signs Past 12 Hours Date Time Temp Pulse Resp B/P (MAP) Pulse Ox O2 Delivery O2 Flow Rate FiO2 10/03/17 15:44 37.3 65 18 126/80 (95) 95 Room Air 10/03/17 15:30 Room Air Notes Mental Status: alert / awake / arousable, participated in evaluation Pt Amnestic to Procedure: Yes Nausea / Vomiting: adequately controlled Pain: adequately controlled Airway Patency, RR, SpO2: stable & adequate BP & HR: stable & adequate Hydration State: stable & adequate Anesthetic Complications: no major complications apparent
[2017-10-03] MEDS ORDERED: BUPIVACAINE 0.5 % 5 MG/1 ML MPF 30ML VIAL INJ ONE (20:01)
[2017-10-03] MEDS ORDERED: BACITRACIN 50000 UNIT VIAL IR ONE (20:02)
--- NOTE | 2017-10-03 21:00 | Progress Note ---
Medicine Progress Note Date & Time of Visit: Oct 03, 2017 at 13:46. Subjective 47 yo M with recent dog bite to his hand. The dog was his own and reports shots were UTD. Overnight the erythema has improved somewhat but the patient is still unable to flex his interphalangeal joint. Per Ortho hand surgeon, there is concern for a septic joint. Washout is planned for later today. Pain not well-controlled by T3 so will switch to Percocet 7.5. Cont Unasyn. Objective Last 8 Hrs Date Time Temp Pulse Resp B/P (MAP) Pulse Ox O2 Delivery O2 Flow Rate FiO2 10/03/17 07:20 Room Air 10/03/17 07:16 37.0 62 17 116/70 (85) 94 Room Air Physical Exam: GEN: WNWD, in no acute distress, alert and appropriate HEENT: NC/AT, normal sclerae, MMM CARDIO: reg rate, S1/2 heard without m/g/r LUNGS: CTA bilaterally, no crackles, rales or wheezes, good diaphragmatic excursion ABD: soft, non-tender, non-distended, no rebound or guarding EXTREMITY: RP and DP palpable 2+ bilat, no LE swelling or edema, extremities are warm and well-perfused. L thumb is erythematous with decreased flexion at the interphalangeal joint. Improved ROM at the CMC joint. Erythema has decreased overall localized around the IP joint. Wound is closed by secondary intention and is not currently draining. NEURO: CN 2-12 grossly intact, sensation intact throughout MUSC: 5/5 strength throughout, no focal deficits except as above. SKIN: warm and dry and wound as above. Laboratory Results: 10/03/17 06:37 Red Blood Count 4.75, Mean Corpuscular Volume 84.2, Mean Corpuscular Hemoglobin 30.3, Mean Corpuscular Hemoglobin Concent 36.0, Mean Platelet Volume 9.8, Neutrophils (%) (Auto) 67.6, Lymphocytes (%) (Auto) 21.1, Monocytes (%) (Auto) 8.2, Eosinophils (%) (Auto) 2.6, Basophils (%) (Auto) 0.3, Neutrophils # (Auto) 4.46, Lymphocytes # (Auto) 1.39, Monocytes # (Auto) 0.54, Eosinophils # (Auto) 0.17, Basophils # (Auto) 0.02 10/02/17 02:40 Test 10/02/17 02:40 10/02/17 10:50 10/02/17 12:27 10/03/17 06:37 Anion Gap 3.0 mmol/L (3-11) Est Creatinine Clear Calc Drug Dose 122.7 ml/min Estimated GFR () 119.4 Estimated GFR (Non- 103.0 BUN/Creatinine Ratio 17.8 (10-20) Calcium Level 8.7 mg/dl (8.5-10.1) Total Bilirubin 0.7 mg/dl (0.2-1) Direct Bilirubin 0.2 mg/dl (0-0.2) Aspartate Amino Transf (AST/SGOT) 23 U/L (15-37) Alanine Aminotransferase (ALT/SGPT) 31 U/L (12-78) Alkaline Phosphatase 90 U/L (45-117) C-Reactive Protein 1.65 mg/dl (0-0.29) Total Protein 7.4 gm/dl (6.4-8.2) Albumin 3.9 gm/dl (3.4-5.0) Urine Color YELLOW Urine Appearance CLEAR (CLEAR) Urine pH 6.5 (4.5-7.5) Urine Specific [place] 1.019 (1.000-1.030) Urine Protein NEG (NEG) Urine Glucose (UA) NEG (NEG) Urine Ketones NEG (NEG) Urine Occult Blood NEG (NEG) Urine Nitrite NEG (NEG) Urine Bilirubin NEG (NEG) Urine Urobilinogen NEG (NEG) Urine Leukocyte Esterase NEG (NEG) Absolute Reticulocyte Count 0.05 10^6/uL (0.02-0.10) Percent Reticulocyte Count 1.1 % (0.5-2.0) Iron Level 35 mcg/dl (35-175) Total Iron Binding Capacity 323 mcg/dl (250-450) Transferrin 246 mg/dl (200-360) Transferrin % Saturation 10 % (20-50) Ferritin 79.2 ng/ml (8.0-388.0) Total Creatine Kinase 207 U/L (39-308) Vitamin B12 Level 611 pg/mL (211-911) Folate 18.22 ng/mL (>5.38) White Blood Count 6.59 K/uL (4.8-10.8) Red Blood Count 4.75 M/uL (4.7-6.1) Hemoglobin 14.4 g/dL (14.0-18.0) Hematocrit 40.0 % (42-52) Mean Corpuscular Volume 84.2 fL (80-100) Mean Corpuscular Hemoglobin 30.3 pg (25-34) Mean Corpuscular Hemoglobin Concent 36.0 g/dl (32-36) Platelet Count 152 K/uL (130-400) Mean Platelet Volume 9.8 fL (7.4-10.4) Neutrophils (%) (Auto) 67.6 % Lymphocytes (%) (Auto) 21.1 % Monocytes (%) (Auto) 8.2 % Eosinophils (%) (Auto) 2.6 % Basophils (%) (Auto) 0.3 % Neutrophils # (Auto) 4.46 K/uL (1.4-6.5) Lymphocytes # (Auto) 1.39 K/uL (1.2-3.4) Monocytes # (Auto) 0.54 K/uL (0.11-0.59) Eosinophils # (Auto) 0.17 K/uL (0-0.5) Basophils # (Auto) 0.02 K/uL (0-0.2) RDW Standard Deviation 38.4 fL (36.4-46.3) RDW Coefficient of Variation 12.5 % (11.5-14.5) Immature Granulocyte % (Auto) 0.2 % Immature Granulocyte # (Auto) 0.01 K/uL (0.00-0.02) Date/Time Source Procedure Growth Status 10/03/17 19:20 Abscess Thumb , Left Gram Stain Pending Received 10/03/17 19:20 Abscess Thumb , Left Bacterial Culture Pending Received Last 24 Hours Test 10/03/17 06:37 White Blood Count 6.59 K/uL Red Blood Count 4.75 M/uL Hemoglobin 14.4 g/dL Hematocrit 40.0 % Mean Corpuscular Volume 84.2 fL Mean Corpuscular Hemoglobin 30.3 pg Mean Corpuscular Hemoglobin Concent 36.0 g/dl Platelet Count 152 K/uL Mean Platelet Volume 9.8 fL Neutrophils (%) (Auto) 67.6 % Lymphocytes (%) (Auto) 21.1 % Monocytes (%) (Auto) 8.2 % Eosinophils (%) (Auto) 2.6 % Basophils (%) (Auto) 0.3 % Neutrophils # (Auto) 4.46 K/uL Lymphocytes # (Auto) 1.39 K/uL Monocytes # (Auto) 0.54 K/uL Eosinophils # (Auto) 0.17 K/uL Basophils # (Auto) 0.02 K/uL RDW Standard Deviation 38.4 fL RDW Coefficient of Variation 12.5 % Immature Granulocyte % (Auto) 0.2 % Immature Granulocyte # (Auto) 0.01 K/uL Date/Time Source Procedure Growth Status 10/02/17 15:50 Drainage - Surface Hand Left Gram Stain - Final Resulted 10/02/17 15:50 Drainage - Surface Hand Left Wound Culture Pending Resulted Assessment & Plan 47 yo M with recent dog bite to his hand. The dog was his own and reports shots were UTD. Overnight the erythema has improved somewhat but the patient is still unable to flex his interphalangeal joint. Per Ortho hand surgeon, there is concern for a septic joint. Washout is planned for later today. Pain not well-controlled by T3 so will switch to Percocet 7.5. Cont Unasyn. Left hand cellulitis 2/2 dog bite-no sepsis. Wound is closed and not draining. Cont IV Unasyn and await surgical washout. Appreciate recs for post-operative abx per Dr. Vega. DVT proph-SCDs Full Code Dispo-to home in 1-2 days on PO abx. DO Rajan Reynolds Hospitalist Consultants: Ortho Current Inpatient Medications: Current Inpatient Medications Medications (Trade) Dose Ordered Sig/Lorrie Route Start Time Stop Time Status Last Admin Dose Admin Acetaminophen (Tylenol Tab) 650 mg Q4H PRN PO 10/02/17 04:15 11/01/17 04:14 Morphine Sulfate (MoRPHine SULFATE INJ) 4 mg Q3H PRN IV 10/02/17 04:15 10/16/17 04:14 Ibuprofen (Advil Tab) 400 mg Q6H PRN PO 10/02/17 04:15 11/01/17 04:14 10/02/17 22:38 400 MG Ondansetron HCl (Zofran Inj) 4 mg Q6H PRN IV 10/02/17 04:15 11/01/17 04:14 Lorazepam (Ativan Inj) 0.5 mg Q4H PRN IV 10/02/17 04:15 11/01/17 04:14 Ampicillin Sodium/ Sulbactam Sodium (Consult) 1 ea DAILY PRN N/A 10/02/17 09:00 11/01/17 08:59 Ampicillin Sodium/ Sulbactam Sodium 3000 mg/Sodium Chloride 108 ml @ 216 mls/hr Q6H IV 10/02/17 08:30 10/12/17 08:29 10/03/17 09:37 216 MLS/HR Gadobutrol (Gadavist) 9 mmol UD PRN IV 10/02/17 05:10 10/06/17 05:09 Acetaminophen/ Codeine Phosphate (Tylenol w/ Codeine #3 Tab) 1 tab Q4H PRN PO 10/02/17 13:30 11/01/17 13:29 10/03/17 07:39 1 TAB
[2017-10-03] MEDS: MoRPHine SULFATE 4 MG/ML 1 ML CARP\\VIAL IV PRN (22:49)
[2017-10-04] MEDS: AMPICILLIN/SULBACTAM SOD INJ 3,000 MG in SODIUM CHLORIDE 0.9% 100ML 100 ML IV SCH ×4 (02:37→20:33)
[2017-10-04] MEDS: MoRPHine SULFATE 4 MG/ML 1 ML CARP\\VIAL IV PRN (02:38)
[2017-10-04 03:53] VITALS: BP 111/68; PULSE 69; TEMP 37.7; O2SAT 93
--- NOTE | 2017-10-04 07:01 | OPERATIVE REPORT ---
DATE OF OPERATION: 10/03/2017 PREOPERATIVE DIAGNOSIS: Septic interphalangeal joint, left thumb. POSTOPERATIVE DIAGNOSIS: Same. PROCEDURE: Left thumb arthrotomy and drainage. SURGEON: Juliano Marina MD. ENERGY AUDIT ADVISOR: None. ANESTHESIA: Digital block with sedation. INDICATIONS: This is a 47-year-old male with progressive pain and swelling after a dog bite to the left thumb. He presents with persistent infection and concern for septic joint. The risks and benefits have been discussed including, but not limited to, risk of infection, nerve injury, stiffness, loss of motion, failure to improve, etc. Reasonable outcomes and options of treatment were discussed. An explanation of appropriate alternatives to the procedure that may be advantageous were discussed and their risks and benefits, as well as the risks and benefits of not proceeding with treatment. I offered to answer any additional inquiries concerning the treatment involved. All the patient's questions were answered. The patient is agreeable, understanding of the treatment plan and alternatives, and wishes to proceed with the treatment plan. DESCRIPTION OF PROCEDURE: I extended the patient's open laceration over the dorsal aspect of the IP joint and extended this slightly proximally and distally. Dissection was carried down through the skin and subcutaneous tissue. Gross pus was encountered. This was sent for culture. There was a traumatic rent in the capsule and in the extensor tendon to which communicated directly with the joint. Evidence of septic joint was seen and there was gross pus in the joint. I irrigated the joint copiously with 1 liter of normal saline after I performed a formal arthrotomy and drainage. The area was copiously irrigated and I performed debridement of skin, subcutaneous tissue and fascia. The structural integrity of the tendon was intact other than a small rent. Once the incision was copiously irrigated and debrided, tourniquet was let down, hemostasis was obtained with bipolar electrocautery. Skin was closed with 4-0 nylon. The patient was placed in a soft dressing and sent to the PACU in a stable condition. I attest to the content of the Intraoperative Record and any orders documented therein. Any exception s are noted below.
[2017-10-04 07:11] VITALS: BP 129/76; PULSE 74; TEMP 37.5; O2SAT 95
[2017-10-04] MEDS ORDERED: POLYETHYLENE (MIRALAX) 17 GM PACK PO ONE (08:14)
[2017-10-04] MEDS: OXYCODONE/ACETAMINOPHEN 7.5-325 TAB PO PRN (08:27)
--- NOTE | 2017-10-04 10:15 | Orthopedic Progress Note ---
Orthopedic Progress Note Date of Service Oct 04, 2017. Subjective Post OP Day: 1 Reports: feeling well, pain controlled w PO medications, Denies: complaints Objective N/V intact, capillary refill less than 2 sec., dressing C/D/I, A&O x3 Date Time Temp Pulse Resp B/P (MAP) Pulse Ox O2 Delivery O2 Flow Rate FiO2 10/04/17 08:05 Room Air 10/04/17 07:11 37.5 74 16 129/76 (93) 95 Room Air 10/04/17 03:53 37.7 69 16 111/68 (82) 93 Room Air 10/03/17 23:50 Room Air 10/03/17 23:38 37.6 10/03/17 23:35 38.5 88 17 129/71 (90) 96 Room Air 10/03/17 22:09 37.0 74 18 118/74 (89) 96 Room Air 10/03/17 21:05 36.7 61 18 136/83 (100) 93 Room Air 10/03/17 20:35 36.7 54 18 118/74 (89) 96 Room Air 10/03/17 20:15 96 Room Air 10/03/17 20:15 96 Room Air 10/03/17 19:59 37.1 10/03/17 19:57 51 21 10/03/17 19:57 52 21 96 10/03/17 19:56 107/69 10/03/17 19:52 51 15 10/03/17 19:52 51 15 96 10/03/17 19:51 49 17 108/68 96 10/03/17 19:51 48 17 10/03/17 19:46 52 17 10/03/17 19:46 52 17 108/68 94 10/03/17 19:41 53 17 10/03/17 19:41 53 17 99/65 94 10/03/17 19:36 21 10/03/17 19:36 57 21 113/69 10/03/17 19:36 36.5 60 16 133/69 96 Room Air 10/03/17 15:44 37.3 65 18 126/80 (95) 95 Room Air 10/03/17 15:30 Room Air Additional Notes: RUN DATE: 10/04/17 [facility] LAB PAGE 1 RUN TIME: 927 Specimen Inquiry PATIENT: KELI MONTGOMERY JR LOC: [facility] U # : [id number] AGE/SX: 47/M ROOM: [facility] REG : 10/02/[address]: Eden Gould DO : 1970 BED: 1 DIS : STATUS: ADM IN TLOC: SPEC #: [id number] LISSETH: 10/02/17 STATUS: RES REQ #: [id number] RECD: 10/02/[address]: Javad Manning M.D. SOURCE: DRAIN-SURF ENTR: 10/02/17 [facility] DR: Ata Roman, D.OLoyda SPDESC: HAND LEFT No Doctor, Assigned Eden Gould DO ORDERED: SURF WND CU/[facility] COMMENTS: Has Specimen Been Obtained/Collected? Y Procedure Result Verified Site GRAM STAIN Final 10/03/17 RESULT MANY POLYS NO ORGANISMS SEEN SURFACE WOUND CULTURE Preliminary 10/04/17 Organism 1 PASTEURELLA MULTOCIDA QUANITY FEW SENS NO SENSITIVITY TO FOLLOW Assessment & Plan Assessment: Infected Dog Bite Left Thumb Plan: Wound cx as above; OR cx pending with gram + cocci noted Continue IV Unasyn Dr Elliott to see today
[2017-10-04 10:38] VITALS: BP 133/76; PULSE 74; TEMP 37.1; O2SAT 95
[2017-10-04] MEDS ORDERED: NAPROXEN 250 MG TAB PO ONE (12:33)
[2017-10-04 15:05] VITALS: BP 127/81; PULSE 74; TEMP 37.3; O2SAT 95
[2017-10-04] MEDS: OXYCODONE/ACETAMINOPHEN 10/325MG TAB PO PRN ×3 (15:15→23:40)
[2017-10-04] MEDS: POLYETHYLENE (MIRALAX) 17 GM PACK PO PRN (15:54)
--- NOTE | 2017-10-04 15:57 | Progress Note ---
Medicine Progress Note Date & Time of Visit: Oct 04, 2017 at 15:53. Subjective tolerating PO some fever overnight s/p washout overnight reports pain in hand-throbbing. Objective Last 8 Hrs Date Time Temp Pulse Resp B/P (MAP) Pulse Ox O2 Delivery O2 Flow Rate FiO2 10/04/17 15:05 37.3 74 16 127/81 (96) 95 Room Air 10/04/17 10:38 37.1 74 16 133/76 (95) 95 Room Air 10/04/17 08:05 Room Air Physical Exam: GEN: WNWD, in no acute distress, alert and appropriate HEENT: NC/AT, normal sclerae, MMM CARDIO: reg rate, S1/2 heard without m/g/r LUNGS: CTA bilaterally, no crackles, rales or wheezes, good diaphragmatic excursion ABD: soft, non-tender, non-distended, no rebound or guarding EXTREMITY: RP and DP palpable 2+ bilat, no LE swelling or edema, extremities are warm and well-perfused. L hand/thumb is wrapped up with clean/dry dressing. NEURO: CN 2-12 grossly intact, sensation intact throughout MUSC: 5/5 strength throughout, no focal deficits except as above. SKIN: warm and dry and wound as above. Laboratory Results: 10/03/17 06:37 Red Blood Count 4.75, Mean Corpuscular Volume 84.2, Mean Corpuscular Hemoglobin 30.3, Mean Corpuscular Hemoglobin Concent 36.0, Mean Platelet Volume 9.8, Neutrophils (%) (Auto) 67.6, Lymphocytes (%) (Auto) 21.1, Monocytes (%) (Auto) 8.2, Eosinophils (%) (Auto) 2.6, Basophils (%) (Auto) 0.3, Neutrophils # (Auto) 4.46, Lymphocytes # (Auto) 1.39, Monocytes # (Auto) 0.54, Eosinophils # (Auto) 0.17, Basophils # (Auto) 0.02 10/02/17 02:40 Test 10/02/17 02:40 10/02/17 10:50 10/02/17 12:27 10/03/17 06:37 Anion Gap 3.0 mmol/L (3-11) Est Creatinine Clear Calc Drug Dose 122.7 ml/min Estimated GFR () 119.4 Estimated GFR (Non- 103.0 BUN/Creatinine Ratio 17.8 (10-20) Calcium Level 8.7 mg/dl (8.5-10.1) Total Bilirubin 0.7 mg/dl (0.2-1) Direct Bilirubin 0.2 mg/dl (0-0.2) Aspartate Amino Transf (AST/SGOT) 23 U/L (15-37) Alanine Aminotransferase (ALT/SGPT) 31 U/L (12-78) Alkaline Phosphatase 90 U/L (45-117) C-Reactive Protein 1.65 mg/dl (0-0.29) Total Protein 7.4 gm/dl (6.4-8.2) Albumin 3.9 gm/dl (3.4-5.0) Urine Color YELLOW Urine Appearance CLEAR (CLEAR) Urine pH 6.5 (4.5-7.5) Urine Specific [place] 1.019 (1.000-1.030) Urine Protein NEG (NEG) Urine Glucose (UA) NEG (NEG) Urine Ketones NEG (NEG) Urine Occult Blood NEG (NEG) Urine Nitrite NEG (NEG) Urine Bilirubin NEG (NEG) Urine Urobilinogen NEG (NEG) Urine Leukocyte Esterase NEG (NEG) Absolute Reticulocyte Count 0.05 10^6/uL (0.02-0.10) Percent Reticulocyte Count 1.1 % (0.5-2.0) Iron Level 35 mcg/dl (35-175) Total Iron Binding Capacity 323 mcg/dl (250-450) Transferrin 246 mg/dl (200-360) Transferrin % Saturation 10 % (20-50) Ferritin 79.2 ng/ml (8.0-388.0) Total Creatine Kinase 207 U/L (39-308) Vitamin B12 Level 611 pg/mL (211-911) Folate 18.22 ng/mL (>5.38) White Blood Count 6.59 K/uL (4.8-10.8) Red Blood Count 4.75 M/uL (4.7-6.1) Hemoglobin 14.4 g/dL (14.0-18.0) Hematocrit 40.0 % (42-52) Mean Corpuscular Volume 84.2 fL (80-100) Mean Corpuscular Hemoglobin 30.3 pg (25-34) Mean Corpuscular Hemoglobin Concent 36.0 g/dl (32-36) Platelet Count 152 K/uL (130-400) Mean Platelet Volume 9.8 fL (7.4-10.4) Neutrophils (%) (Auto) 67.6 % Lymphocytes (%) (Auto) 21.1 % Monocytes (%) (Auto) 8.2 % Eosinophils (%) (Auto) 2.6 % Basophils (%) (Auto) 0.3 % Neutrophils # (Auto) 4.46 K/uL (1.4-6.5) Lymphocytes # (Auto) 1.39 K/uL (1.2-3.4) Monocytes # (Auto) 0.54 K/uL (0.11-0.59) Eosinophils # (Auto) 0.17 K/uL (0-0.5) Basophils # (Auto) 0.02 K/uL (0-0.2) RDW Standard Deviation 38.4 fL (36.4-46.3) RDW Coefficient of Variation 12.5 % (11.5-14.5) Immature Granulocyte % (Auto) 0.2 % Immature Granulocyte # (Auto) 0.01 K/uL (0.00-0.02) Date/Time Source Procedure Growth Status 10/03/17 19:20 Abscess Thumb , Left Gram Stain - Final Resulted 10/03/17 19:20 Bacterial Culture - Preliminary Coag Neg Staphylococcus Resulted Date/Time Source Procedure Growth Status 10/03/17 19:20 Abscess Thumb , Left Gram Stain - Final Resulted 10/03/17 19:20 Bacterial Culture - Preliminary Coag Neg Staphylococcus Resulted Assessment & Plan 47 yo M with recent dog bite to his hand. The dog was his own and reports shots were UTD. Washout took place overnight (10/03) and the patient is doing well aside from some continued pain. Increased the percocet to 10mg dose and added scheduled Naproxen. Wound culture is growing P.multocida covered by the Unasyn and also Augmentin. Will defer to Dr. Elliott regarding the need to keep the patient overnight another night for IV abx vs going home on PO Augmentin. I spoke with the patient and his who are OK with either plan. DVT proph-SCDs Full Code Dispo-to home in 1-2 days on PO abx. Eden Gould DO [facility] Hospitalist Consultants: Ortho Current Inpatient Medications: Current Inpatient Medications Medications (Trade) Dose Ordered Sig/Lorrie Route Start Time Stop Time Status Last Admin Dose Admin Acetaminophen (Tylenol Tab) 650 mg Q4H PRN PO 10/02/17 04:15 11/01/17 04:14 10/03/17 23:47 650 MG Ondansetron HCl (Zofran Inj) 4 mg Q6H PRN IV 10/02/17 04:15 11/01/17 04:14 Ampicillin Sodium/ Sulbactam Sodium (Consult) 1 ea DAILY PRN N/A 10/02/17 09:00 11/01/17 08:59 Ampicillin Sodium/ Sulbactam Sodium 3000 mg/Sodium Chloride 108 ml @ 216 mls/hr Q6H IV 10/02/17 08:30 10/12/17 08:29 10/04/17 15:14 216 MLS/HR Gadobutrol (Gadavist) 9 mmol UD PRN IV 10/02/17 05:10 10/06/17 05:09 Ondansetron HCl (Zofran Inj) 4 mg ONE PRN IV 10/03/17 18:15 Labetalol HCl (Normodyne IV) 5 mg Q5M PRN IV 10/03/17 18:15 Polyethylene (Miralax Powder Packet) 17 gm BID PRN PO 10/04/17 08:15 11/03/17 08:14 Oxycodone/ Acetaminophen (Percocet 10-325MG Tab) 1 tab Q3H PRN PO 10/04/17 12:45 10/18/17 12:44 10/04/17 15:15 1 TAB Naproxen (Naprosyn Tab) 500 mg BID PO 10/04/17 21:00 11/03/17 20:59
--- NOTE | 2017-10-04 16:43 | Consultant Recommendations ---
Viscera Washer Recommendations Date of Service Oct 04, 2017. Viscera Washer Recommendations follow with Dr Aviles saturday or of next week dry sterile dressing change once a day
--- NOTE | 2017-10-04 16:52 | PROGRESS NOTE ---
DATE: 10/04/2017 SUBJECTIVE: Medhat was seen today at the bedside. He verbalizes no complaints. He notes the thumb is swollen. OBJECTIVE: Left thumb exam does show a well-healing surgical incision over the dressing and the packing today. He has negative Kanavel signs. He has mild pain with range of motion of the PIP joint of the thumb. He has a 1 cm surrounding redness, but no streaking erythema. Cultures showed Pasteurella multocida. ASSESSMENT: Postop day #1 arthrotomy and drainage, septic interphalangeal joint of the left thumb. PLAN: At this point in time, he does exhibit clinical improvement. RECOMMENDATIONS: Continue antibiotics overnight, plan for discharge tomorrow, likely on p.o. Augmentin. He will follow up in the office with me this week either Saturday or for repeat wound check. Continue dry sterile dressing changes once a day.
[2017-10-04] MEDS: NAPROXEN 250 MG TAB PO SCH (20:34)
[2017-10-04 23:00] VITALS: BP 109/67; PULSE 48; TEMP 36.7; O2SAT 96
[2017-10-05] MEDS: AMPICILLIN/SULBACTAM SOD INJ 3,000 MG in SODIUM CHLORIDE 0.9% 100ML 100 ML IV SCH ×3 (02:15→13:32)
[2017-10-05 06:59] VITALS: BP 116/74; PULSE 45; TEMP 36.6; O2SAT 97
[2017-10-05] MEDS: NAPROXEN 250 MG TAB PO SCH (08:03)
[2017-10-05] MEDS: POLYETHYLENE (MIRALAX) 17 GM PACK PO PRN (08:11)
[2017-10-05] MEDS: OXYCODONE/ACETAMINOPHEN 10/325MG TAB PO PRN (13:32)
[2017-10-05] MEDS ORDERED: NAPR500T3 PO (14:00)
[2017-10-05] MEDS ORDERED: AMOX875T PO (14:00)
--- NOTE | 2017-10-05 14:08 | Discharge Instructions ---
Discharge Instructions Date of Service Oct 05, 2017. Admission Reason for Admission: Cellulitis Discharge Discharge Diagnosis / Problem: Septic interphalangeal joint s/p dog bite on R hand Discharge Goals Goal(s): Prevent Disease Progression Activity Recommendations Activity Limitations: per Instructions/Follow-up section Shower/Bathe: no limitations No lifting more than 20 pounds overhead or doing any work that might disrupt the wound until complete resolution, roughly 3 weeks time. Instructions / Follow-Up Instructions / Follow-Up Please take medications as instructed. Follow with Dr Todd Elliott Saturday or of next week. He is a part of [facility] here in [place]. The phone number is . Please apply a dry sterile dressing change once a day You have a follow-up from this hospitalization with a primary care physician, Dr. Mauricio Cuenca, at the [facility] location. This appointment is on 10/08 @ 12:55pm. If you are unable to make it or need to reschedule, please call the [facility] Appointment line at . It was a pleasure taking care of you! Call if you have any questions or problems. You can reach a [facility] hospitalist on duty at [facility] 24 hours a day by calling [phone]. Take care of yourself. Eden Gould DO [facility] Hospitalist Current Hospital Diet Patient's current hospital diet: Regular Diet Discharge Diet Recommended Diet: Regular Diet Procedures Procedures Performed: Left Thumb Arthrotomy and Drainage Pending Studies Studies pending at discharge: no Medical Emergencies . Who to Call and When: Medical Emergencies: If at any time you feel your situation is an emergency, please call [phone] immediately. . Non-Emergent Contact Non-Emergency issues call your: Primary Care Provider . . "Provider Documentation" section prepared by Eden Gould. . Flooring Sales Manager Recommendations Flooring Sales Manager Recommendations: follow with Dr Elliott saturday or of next week dry sterile dressing change once a day VTE Core Measure Inpt VTE Proph given/why not?: Treatment not indicated [place] Drug Monitoring Program Search Results: patient reviewed within database, no issues identified
[2017-10-05] MEDS ORDERED: OXYC-88 PO (14:10)
[2017-10-05 14:41] VITALS: BP 116/74; PULSE 45; TEMP 36.6; O2SAT 97
--- NOTE | 2017-10-05 18:23 | Discharge Summary ---
Discharge Summary Date of Service Oct 05, 2017. Discharge Summary Admission Date: Oct 02, 2017 at 03:45 Discharge Date: Oct 05, 2017 Discharge Disposition: Home Principal Diagnosis: L hand cellulitis with Septic joint 2/2 P. multocida s/p dog bite. s/p washout of joint Procedures: 10/03: Left thumb arthrotomy and drainage. Vaccinations: None. Consultations: Ortho Pending Studies/Follow-Up: see instructions below. Medication Reconciliation New Medications: Amoxicillin & Pot Clavulanate (Augmentin 875-125 mg) 1 Tab Tab 875 MG PO BID for 10 Days, #14 TAB Naproxen (Naproxen) 500 Mg Tab 1 TAB PO BID PRN for Pain for 30 Days, #60 TAB 1 Refill Oxycodone/Acetaminophen 10MG/325MG (Oxycodone/Acetaminophen 10MG/325MG) 1 Tab Tab 1 TAB PO Q4H PRN for breakthrough pain for 3 Days, #10 TAB Admission Information HPI (per Admitting provider): HISTORY OF PRESENT ILLNESS: History obtained from patient and records. No significant medical history. Few days ago the patient presented with left thumb swelling after being bitten by his dog, progressive achy swelling, clear yellow drainage. No fever, no chills. Intermittent bleeding noted from the wound. Tetanus immunizations, dog's rabies vaccines up-to-date as per patient. Patient consulted ER. Given Unasyn for left hand cellulitis, infected wound. Physical Exam (per Admitting): PHYSICAL EXAMINATION: VITAL SIGNS: Blood pressure noted to be 130/82, pulse 61, RR 18, temperature 36.7, sats 98 on room air. GENERAL: Slightly anxious, no respiratory distress. SKIN: Normal color. Warm HEENT: Partial alopecia. no ptosis. Dry buccal mucosa. NECK: Supple. No tenderness. CHEST: Clear to auscultation. No tenderness. HEART: Regular rate and rhythm. No murmur. ABDOMEN: Soft, nontender. EXTREMITIES: There is note of crusty wound on the dorsum of the left thumb with swelling extending to the left wrist, tender. NEUROLOGIC: Coherent. No gross focality. Hospital Course 47 yo M with recent dog bite to his hand. The dog was his own and reports shots were UTD. Washout took place overnight (10/03) and the patient is doing well aside from some continued pain. Increased the percocet to 10mg dose and added scheduled Naproxen. Wound culture is growing P.multocida covered by the Unasyn and also Augmentin. Will defer to Dr. Elliott regarding the need to keep the patient overnight another night for IV abx vs going home on PO Augmentin. I spoke with the patient and his who are OK with either plan. DVT proph-SCDs Full Code Dispo-to home in 1-2 days on PO abx. Eden Gould DO [facility] Hospitalist Total time spent on discharge = 60 minutes This includes examination of the patient, discharge planning, medication reconciliation, and communication with other providers. Discharge Instructions [facility] [address] [place] [address] Discharge Medical Patient Name: Medhat Cordero JR Unit Number: [id number] Date of : 1970 Patient Status: Discharged Inpatient Attending Doctor: Eden Gould DO DI: Medical v4 Discharge Instructions Date of Service Oct 05, 2017. Admission Reason for Admission: Cellulitis Discharge Discharge Diagnosis / Problem: Septic interphalangeal joint s/p dog bite on R hand Discharge Goals Goal(s): Prevent Disease Progression Activity Recommendations Activity Limitations: per Instructions/Follow-up section Shower/Bathe: no limitations No lifting more than 20 pounds overhead or doing any work that might disrupt the wound until complete resolution, roughly 3 weeks time. Instructions / Follow-Up Instructions / Follow-Up Please take medications as instructed. Follow with Dr Todd Elloitt Saturday or of next week. He is a part of [facility] here in [place]. The phone number is . Please apply a dry sterile dressing change once a day You have a follow-up from this hospitalization with a primary care physician, Dr. Mauricio Cuenca, at the [facility] location. This appointment is on 10/08 @ 12:55pm. If you are unable to make it or need to reschedule, please call the [facility] Appointment line at . It was a pleasure taking care of you! Call if you have any questions or problems. You can reach a [facility] hospitalist on duty at [facility] 24 hours a day by calling [phone]. Take care of yourself. Eedn Gould DO [facility] Hospitalist Current Hospital Diet Patient's current hospital diet: Regular Diet Discharge Diet Recommended Diet: Regular Diet Procedures Procedures Performed: Left Thumb Arthrotomy and Drainage Pending Studies Studies pending at discharge: no Medical Emergencies . Who to Call and When: Medical Emergencies: If at any time you feel your situation is an emergency, please call 911 immediately. . Non-Emergent Contact Non-Emergency issues call your: Primary Care Provider . . "Provider Documentation" section prepared by Eden Gould. . Physician Ophthalmologist Recommendations Physician Ophthalmologist Recommendations: follow with Dr Elliott saturday or of next week dry sterile dressing change once a day VTE Core Measure Inpt VTE Proph given/why not?: Treatment not indicated [place] Drug Monitoring Program Search Results: patient reviewed within database, no issues identified Additional Copies To Alphonso Cuenca M.D. ([facility])
== END 2017-10-05 15:00 | disposition home or self-care (01) | DRG 506 ==
LOC: C.EDB 02:19 → C.MSN 03:45 → ENRESERV 03:55
PROVIDERS: ADMIT Internal Medicine; ATTEND Hospitalist
PROC: 0R9X0ZZ Drainage of Left Finger Phalangeal Joint, Open Approach (ICD-10-PCS; principal; 2017-10-03 08:30)
DX: M00.842 Arthritis due to other bacteria, left hand (principal); B96.89 Other specified bacterial agents as the cause of diseases classified elsewhere; L03.012 Cellulitis of left finger; S61.052A Open bite of left thumb without damage to nail, initial encounter; W54.0XXA Bitten by dog, initial encounter; D64.9 Anemia, unspecified; Z83.3 Family history of diabetes mellitus; Z82.49 Family history of ischemic heart disease and other diseases of the circulatory system